=== PATIENT | female | born 1950 | race Caucasian/White ===

== ENCOUNTER 2023-05-22 16:21 | Outpatient (CLI) | payer MEDICARE, BC, SELFPAY | END 2023-05-22 16:22 | disposition home or self-care (01) | LOC: LKVREF 16:23 | PROVIDERS: PCP Physician Assistant Medical; Visit Provider Physician Assistant Medical | DX: Z00.00 Encounter for general adult medical examination without abnormal findings (principal); E03.9 Hypothyroidism, unspecified; I10 Essential (primary) hypertension; R10.9 Unspecified abdominal pain; Z13.6 Encounter for screening for cardiovascular disorders | CPT/HCPCS: 80053; 80061 ==

== ENCOUNTER 2023-06-07 12:32 | Outpatient (CLI) | payer MEDICARE, BC, SELFPAY ==
--- NOTE | 2023-06-07 13:00 | CRLHL7_ITS ---
For Patients: As a result of the Century Cures Act, medical imaging exams and procedure reports are released immediately into your electronic medical record. You may view this report before your referring provider. If you have questions, please contact your health care provider. Indication: Unspecified abdominal pain, PALPABLE Pulsatile MASS Technique: Postcontrast CT abdomen and pelvis. 59 cc Isovue 370 intravenous contrast. Please note that all CT scans at this facility use dose modulation, iterative reconstruction, and/or weight-based dosing when appropriate to reduce radiation dose to as low as reasonably achievable. Comparison: 02/28/2021 Findings: Mild linear subsegmental scarring is present within both lung bases. There is no pleural effusion. No free intraperitoneal air. Sub centimeters cyst within the left hepatic lobe is unchanged. Small layering stones within the gallbladder are present. Coarse calcification within the pancreas. This is unchanged. No suspicious pancreatic lesion. Stable 2.1 cm left adrenal nodule. Right adrenal gland normal. No solid renal mass or hydronephrosis. Spleen is normal. No hiatal hernia. Atherosclerotic changes. No abdominal aortic aneurysm. Bladder normal. Calcified uterine leiomyoma. No adnexal mass. Ovaries appear normal. Ureters are normal. Chronic fracture deformity of the left inferior pubic ramus. Degenerative disc disease and facet degeneration lower lumbar spine. No vertebral body compression fracture. Scattered subcentimeter lymph nodes throughout the abdomen and pelvis without suspicious adenopathy. Appendix normal. No bowel obstruction. Impression: Atherosclerotic disease with ectatic contour of the aorta. However, there is no aneurysm. Mild cholelithiasis, chronic. Stable 2.1 cm left adrenal adenoma. Please note that all CT scans at this facility use dose modulation, iterative reconstruction, and/or weight-based dosing when appropriate to reduce radiation dose to as low as reasonably achievable. Dictated by Berlin Sheppard MD @ 06/10/2023 11:21:01 AM (Electronically Signed)
== END 2023-06-07 12:33 | disposition home or self-care (01) ==
LOC: CT 12:33
PROVIDERS: PCP Physician Assistant Medical; Visit Provider Physician Assistant Medical
DX: R10.9 Unspecified abdominal pain (principal); I70.0 Atherosclerosis of aorta; K80.20 Calculus of gallbladder without cholecystitis without obstruction; D35.02 Benign neoplasm of left adrenal gland
CPT/HCPCS: 74177; Q9967

== ENCOUNTER 2023-06-19 12:44 | Outpatient (CLI) | payer MEDICARE, BC, SELFPAY ==
--- NOTE | 2023-06-19 13:00 | CRLHL7_ITS ---
For Patients: As a result of the Cures Act, medical imaging exams and procedure reports are released immediately into your electronic medical record. You may view this report before your referring provider. If you have questions, please contact your health care provider. INDICATION: Lung cancer screening. History of smoking. High risk patient with greater than 20 pack-year smoking history. TECHNIQUE: Low-dose lung cancer screening non-contrast CT chest. Dose reduction techniques were used. COMPARISON: CT abdomen 06/07/2023 FINDINGS: NODULES: 7.4 millimeter sub solid nodule right upper lobe laterally, 3/48. ill-defined sub solid nodule superior segment left lower lobe measuring 7.8 millimeters, 3/40. LUNGS AND PLEURA: Paraseptal emphysema. Linear subsegmental scarring in both lower lobes and within the right middle lobe. MEDIASTINUM: Atherosclerotic changes. No aneurysm. CORONARY ARTERY CALCIFICATION: Present. LIMITED UPPER ABDOMEN: Left adrenal adenoma again noted. Atherosclerotic changes. No hiatal hernia. MUSCULOSKELETAL: Degenerative changes. No fracture. IMPRESSION: 7.4 millimeter sub solid nodule right upper lobe and 7.8 millimeters sub solid nodule left lower lobe. LUNG-RADS CATEGORY: 3: Probably benign. RADIOLOGIST RECOMMENDATION: Low-dose CT chest in 6 months. Please note that all CT scans at this facility use dose modulation, iterative reconstruction, and/or weight-based dosing when appropriate to reduce radiation dose to as low as reasonably achievable. Dictated by Berlin Sheppard MD @ 06/20/2023 10:44:27 AM (Electronically Signed)
== END 2023-06-19 12:45 | disposition home or self-care (01) ==
LOC: CT 12:44
PROVIDERS: PCP Physician Assistant Medical; Visit Provider Physician Assistant Medical
DX: Z12.2 Encounter for screening for malignant neoplasm of respiratory organs (principal); R91.1 Solitary pulmonary nodule; Z87.891 Personal history of nicotine dependence
CPT/HCPCS: 71271

== ENCOUNTER 2023-08-26 12:59 | Outpatient (CLI) | payer MEDICARE, BC, SELFPAY ==
--- NOTE | 2023-08-26 13:20 | CRLHL7_ITS ---
For Patients: As a result of the Century Cures Act, medical imaging exams and procedure reports are released immediately into your electronic medical record. You may view this report before your referring provider. If you have questions, please contact your health care provider. BILATERAL SCREENING MAMMOGRAM WITH COMPUTER-AIDED DETECTION TECHNIQUE: CC and MLO views were obtained. These mammographic images have been obtained using full-field digital technique. These mammographic images were interpreted with the benefit of computer-aided detection. COMPARISON FILM: 07/28/18 rt diag., 07/14/18. FINDINGS: There are scattered areas of fibroglandular density IMPRESSION: There is no radiographic evidence for malignancy. ASSESSMENT: BI-RADS Category 2: Benign RECOMMENDATION: Routine screening mammogram in 1 year. A lay language report of this examination will be provided to the patient. Berlin Sheppard M.D. Diagnostic Radiologist [email or web address] ANN/Dictated by: Berlin Sheppard MD @ 08/27/2023 8:57:00 AM (Electronically Signed)
== END 2023-08-26 13:00 | disposition home or self-care (01) ==
PROVIDERS: PCP Physician Assistant Medical; Visit Provider Physician Assistant Medical
DX: Z12.31 Encounter for screening mammogram for malignant neoplasm of breast (principal)
CPT/HCPCS: 77063; 77067

== ENCOUNTER 2024-01-06 10:48 | Outpatient (CLI) | payer MEDICARE, BC, SELFPAY ==
--- NOTE | 2024-01-06 11:00 | CT_ITS ---
Patient: CLEMENTE MENDES Facility:?[facility] Patient ID:?[id number] Site Patient ID:?[id number]. Site :?[id number] Study:?CT-Chest WITHOUT-01/06/2024 11:26:46 AM Ordering Physician:ANGIE Final Report: Indication: Pulmonary nodule lung cancer screening follow-up Technique: Low-dose noncontrast CT of the chest with multiplanar reformats. Comparison: Chest CT performed 06/19/2023 Findings: Lungs: Ground-glass nodule in the superior segment of the left lower lobe measuring 7.5 millimeters appears unchanged. Ground-glass nodule in the right upper lobe measuring 6.5 millimeters is slightly decreased in size compared to prior examination. Additional smaller scattered nodules are unchanged with no convincing evidence of a new or enlarging nodule. Scattered areas of atelectasis and/or scarring are again noted. Mediastinum: No acute abnormality appreciated. Three-vessel calcified coronary arterial atherosclerosis. Calcified atherosclerosis of the aorta and great vessels. Lymph nodes: No gross lymphadenopathy. Upper abdomen: No acute abnormality appreciated. Soft tissues: No acute abnormality appreciated. Bones: No acute abnormality appreciated. Impression: No new or enlarging nodules are appreciated. Previously described nodules are unchanged or decreased in size. Recommend continued annual surveillance screening (Lung-RADS 2). Please note that all CT scans at this facility use dose modulation, iterative reconstruction, and/or weight-based dosing when appropriate to reduce radiation dose to as low as reasonably achievable. Dictated by Adryan Sotelo MD @ 01/06/2024 8:51:06 PM Signed by:?Adryan Sotelo MD @01/06/2024 8:51:06 PM (Electronic Signature)
== END 2024-01-06 10:49 | disposition home or self-care (01) ==
LOC: CT 10:49
PROVIDERS: PCP Physician Assistant Medical; Visit Provider Physician Assistant Medical
DX: R91.1 Solitary pulmonary nodule (principal); Z12.2 Encounter for screening for malignant neoplasm of respiratory organs
CPT/HCPCS: 71250

== ENCOUNTER 2024-05-25 10:22 | Outpatient (CLI) | payer MEDICARE, BC, SELFPAY | END 2024-05-25 10:23 | disposition home or self-care (01) | PROVIDERS: PCP Physician Assistant Medical; Visit Provider Physician Assistant Medical | DX: E78.5 Hyperlipidemia, unspecified (principal); I10 Essential (primary) hypertension; E03.9 Hypothyroidism, unspecified | CPT/HCPCS: 80053; 80061; 84439; 84443 ==

== ENCOUNTER 2024-06-11 14:09 | Outpatient (CLI) | payer MEDICARE, BC, SELFPAY ==
--- NOTE | 2024-06-11 14:30 | CRLHL7_ITS ---
For Patients: As a result of the Century Cures Act, medical imaging exams and procedure reports are released immediately into your electronic medical record. You may view this report before your referring provider. If you have questions, please contact your health care provider. DXA BONE MINERAL DENSITY STUDY Reason for exam: Screening. Current height (in): 65. Weight (lb): 124. Menopause age: 43. Ethnicity: White. 1. Have you had a previous hip or vertebral fracture? No. 2. Have you had any fractures during your adult life which did not result from significant trauma (e.g., auto accident)? Yes. 3. Did either of your parents have a hip fracture? No. 4. Do you smoke? No. 5. Have you ever taken Glucocorticoids? No. 6. Do you have rheumatoid arthritis? No. 7. Do you have secondary osteoporosis? No. 8. Do you drink 3 or more alcoholic drinks per day? No. 9. Are you being treated for osteoporosis? No. 10. Have you ever taken any of the following medications: Actonel, Evista, Fosamax, Miacalcin, Reclast, Boniva, Forteo, HRT (i.e., estrogen/hormone therapy), Protelos, Prolia, Vitamin D, Calcium, other ??? please specify. ANSWER: No. 11. Do you have any of the following medical conditions: Anorexia or bulimia, asthma or emphysema, end stage renal disease, hyperparathyroidism, any seizure disorders, cancer, inflammatory bowel diseases, hysterectomy, other ??? please specify. ANSWER: No. 12. What was your maximum height (inches)? 66.5. 13. Do you perform weight bearing exercise regularly? No. 14. Do you regularly consume dairy products? No. 15. Do you drink caffeinated beverages? Yes. 16. At what age did your period start? 14. 17. Are you premenopausal? No. 18. How many full-term pregnancies have you had? 1. 19. Have you ever missed your period for more than 6 months in a row (not including or menopause)? No. TECHNIQUE: Bone mineral density study was performed using the [employer]. FINDINGS: The results of the study expressed as bone mineral density (BMD) are as follows: Lumbar spine L1 to L4: BMD: 0.865 g/cm2. T-score: -1.7. Z-score: 0.8 Neck Left: BMD: 0.502 g/cm2. T-score: -3.1. Z-score: -1.0 Right: BMD: 0.509 g/cm2. T-score: -3.1. Z-score: -1.0 Total Left: BMD: 0.596 g/cm2. T-score: -2.8. Z-score: -1.0 Right: BMD: 0.613 g/cm2. T-score: -2.7. Z-score: -0.9 IMPRESSION: Osteoporosis. *Comparison exams done prior to 03/2020 were performed on different unit, [employer]. COMPARISON: Compared with scan of 07/14/2018, the bone mineral density has increased by 0.7 percent at the spine and decreased by 9.3 percent at the hip. Berlin Sheppard M.D. Diagnostic Radiologist [email or web address] JANAE/emre andrea/Dictated by: Berlin Sheppard MD @ 06/12/2024 1:04:00 PM (Electronically Signed)
== END 2024-06-11 14:10 | disposition home or self-care (01) ==
LOC: RAD 14:10
PROVIDERS: PCP Physician Assistant Medical; Visit Provider Physician Assistant Medical
DX: Z13.820 Encounter for screening for osteoporosis (principal); M81.0 Age-related osteoporosis without current pathological fracture; Z78.0 Asymptomatic menopausal state
CPT/HCPCS: 77080

== ENCOUNTER 2024-07-28 11:00 | Outpatient (RCR) | payer MEDICARE, BC, SELFPAY ==
--- NOTE | 2024-06-16 12:36 | PT.OPE ---
PT [facility] Eval Start: 06/16/24 09:33 Freq: Status: Active Protocol: Document 06/16/24 09:33 ENM (Rec: 06/16/24 11:28 ENM [id number]) E-signed By Emerita Coronel DPT Physical Therapy Outpatient Evaluation Insurance Information Recert Due Date 09/14/24 Insurance Name Medicare B Medical Diagnosis other malaise other abnormalities of gait and mobility Treating Diagnosis muscle weakness, impaired balance, impaired gait, decreased hip ROM Referring MD Lucas Subjective Preferred Name [facility] Subjective Patient presents to PT with complaint of deconditioning and weakness. She had a pelvis fracture on her left side 10+ years ago. She is noticing that this side is getting weaker. Due to that weakness she started to use a cart to walk around with a year ago. Has a 2WW at home as well but thinks this is too bulky. Also notes some discomfort in the left leg from the hip down to the knee. Was given exercises to do for her leg which helped some. Now the pains come and go. She likes to walk and does some leg exercises sitting in the chair. She feels off balance sometimes with getting up quickly. She does get scared with walking out on grass. Lives with her in a senior apartment. Does have a hard time getting up off the floor. Her main goal is to walk better and be steady on her feet. When it started: years ago PMHx: COPD, HTN, respiratory problems, osteoporosis Pain Comments 02/20 Current Work Status Retired Objective Other/Pertinent Objective ROM: Hip ROM flexion limited to 90 degs on L R WFL IR L 50% limited R 25% limited ER L 25% limited R WFL Strength: 5x STS 11.71s 30STS with intermittent hands on thighs 13 reps, slightly weaker on L compared to R hip flexors L 3+/5 R 4+/5 knee extensors L 4/5 R 5/5 ankle DF L 3+/5 R 5/5 hip abductors: L unable to hold against resistance R 4/5 SL hip extensors L unable to hold against resistance R able to hold against mod resistance palpation/joint mobility: no significant tenderness to palpation Gait/balance: Patient ambulates safely with her cart. Without AD she displays decreased stance time of LLE, small step length, slow gait FGA testin. 1 2. 2 3. 2 4. 1 5. 2 6. 1 7. 0 8. 1 9. 1 10 . 1 (10/12) ABC balance confidence: 1. 100 % 2. 75% 3. 100% 4. 80% 5. 80% 6. 40% 7. 80% 8. 50% 9. 75% 10. 50% 11. 50% 12. 50% 13. 50 % 14. 0% 15. 0% 16. 40% total 57.5% confidence SLS 2 s on R side, unable to hold without UE support on L Other: moderate hip flexor limitations on L in sidelying, mild on R Functional Test Performed & Score FGA 10/12 ABC scale 57.5% confidence Assessment Assessment/Impression Patient is a 74 year old female presenting with leg weakness and balance difficulties. Their primary complaint is of needing to use an assistive device in the last year as she no longer feels confident walking outside of the house on her own. She has a history for left pelvis fracture and now feels that this leg has been getting weaker with time. She feels the least confidence walking on grass, getting moving after sitting for longer periods and transferring off the ground. Upon assessment patient displays global weakness of LLE compared to RLE with most significant weakness being in her hip. She scores a 12/30 on FGA testing indicating that she is a falls risk. Her balance confidence was self rated at a 57.5% with ABC scale. Patient ambulates with small cart for support and without an AD she often reaches for the mas or railings. Pat would greatly benefit from skilled PT to address impairments stated above to maintain independence with functional mobility and decrease risk for future falls . Primary Functional Limitations walking, getting off ground, getting moving after sitting Plan of Care Rehabilitation Potential Good Rehabilitation Potential Comments fair-good due to chronic nature of weakness Physical Therapy Goals In 10-12 visits: 1. Patient will be IND with HEP and self management of symptoms 2. Patient will improve FGA score from 12 to 16 demonstrating improvements in balance/stability 3. Patient will improve left global hip strength to at least 4-/5 to progress strength for ambulation 4. Patient will improve ABC by 10% for improved confidence with community mobility Coordination/Communication With Referral Source Treatment Plan/Direct Interventions Gait Training,Joint Mobilization,Manual Therapy, Neuromuscular Re-ed,Self-Care/ Home Management,Therapeutic Activities,Therapeutic Exercises Frequency/Duration 2x a week for 1 month, 1x a week for 4-6 weeks Patient Will Be Discharged From Therapy Completion of LTG(s), Independent w/HEP Evaluation Billing Untimed Code Treatment Minutes 34 Complexity Low Certification Information Initial Certification Date 06/16/24 Ending Certification Date 09/14/24 Provider Signature Required Yes Provider Signature Shows Agreement With POC & Medical Necessity Physician NPI Number Write NPI# Here Physician Comment/Change : Physician Signature & Date Requested Please Sign/Date Here
== END 2024-11-09 15:24 | disposition home or self-care (01) ==
PROVIDERS: PCP Physician Assistant Medical; Visit Provider Physician Assistant Medical
DX: R53.81 Other malaise (principal); R26.89 Other abnormalities of gait and mobility; M62.81 Muscle weakness (generalized); R26.81 Unsteadiness on feet; R26.9 Unspecified abnormalities of gait and mobility; Z74.09 Other reduced mobility; Z51.89 Encounter for other specified aftercare
CPT/HCPCS: 97110; 97112; 97116; 97140; 97161; 97530

== ENCOUNTER 2024-08-13 14:17 | Outpatient (CLI) | payer MEDICARE, BC, SELFPAY | END 2024-08-13 14:18 | disposition home or self-care (01) | LOC: LKVREF 14:19 | PROVIDERS: PCP Physician Assistant Medical; Visit Provider Physician Assistant Medical | DX: M79.652 Pain in left thigh (principal); R71.8 Other abnormality of red blood cells; E03.9 Hypothyroidism, unspecified; R82.90 Unspecified abnormal findings in urine; Z13.21 Encounter for screening for nutritional disorder | CPT/HCPCS: 82607; 82746; 84165; 84443; 86334; 87086 ==

== ENCOUNTER 2024-10-16 13:36 | Emergency (ER) | payer MEDICARE, BC, SELFPAY ==
--- OUTSIDE RECORDS SUMMARY | 2024-10-16 13:39 | XMS_ITS | Clinical Summary ---
Author Organization [employer] [facility] Address [place], [place] [address] Care Team Providers Care Rock Contractor Name Role Phone Unknown, Doctor Primary Care Provider Unavailabl e Allergies No known active allergies Medications imipramine (TOFRANIL) 50 mg tablet Take 4 tablets by mouth at bedtime. 360 tablet 3 4 Active levothyroxine (SYNTHROID) 175 mcg tabletIndications:U nspecified hypothyroidism Take 1 tablet by mouth once daily. 90 tablet 3 4 Active metoprolol succinate (TOPROL XL) 100 mg Sustained-Release tabletIndications:H ypertension Take 1 tablet by mouth once daily. 90 tablet 3 4 Active escitalopram oxalate (LEXAPRO) 10 mg tablet Take 1 tablet by mouth once daily. 30 tablet 3 5 Active Active Problems Problem Noted Date Diagnosed Date Unspecified hypothyroidism 05/17/2010 Other and unspecified hyperlipidemia 05/17/2010 Anxiety state, unspecified 05/17/2010 Encounters Date Type Department Care Team Description 08/14/2024 Lab Requisition [facility] [phone] Lolly Lucas PA-C from Last 3 Months Immunizations Name Administration Dates Next Due Influenza, High-dose Inactivated 08/08/2015,07/14 Influenza, IIV3 (Age >=3 years) 08/07/2013,10/11 Pneumococcal Poly,23-Valent (Pneumovax) 08/07/20 01 Td (Age >=7 Years) 03/30/2004 Family History Medical History Relation Name Comments Cancer Father Diabetes Mother Heart Disease Mother Relation Name Status Comments Father Mother Social History Tobacco Use Types Packs/Day Years Used Date Smoking Tobacco: Former Cigarettes Q uit: 06/21/2010 Smokeless Tobacco: Never Alcohol Use Standard Drinks/Week Comments Yes 0 (1 standard drink = 0.6 oz pur e alcohol) Comments No Sex and Gender Information Value Date Recorded Sex Assigned at Not on file Legal Sex Female 7:55 AM GENERAL REPAIR MECHANIC Gender Identity Not on file Sexual Orientation Not on file Obstetrics History Last Filed Vital Signs Vital Sign Reading Time Taken Comments Blood Pressure 138/72 07/30/2014 9:01 AM CDT Pulse 64 08/07/2013 12:45 PM CDT Temperature 36.5 C (97.7 F) 07/30/2014 9:01 AM CDT Respiratory Rate - - Oxygen Saturation - - Inhaled Oxygen Concentration - - Weight 62.1 kg (137 lb) 07/30/2014 9:01 AM CDT Height 167.6 cm (5' 6) 08/07/2013 12:45 PM CDT Body Mass Index 22.11 08/07/2013 12:45 PM CDT Plan of Treatment Health Maintenance Due Date Last Done Comments Tdap 02/01/1960 Depression screening for age 12+ 1961 BMI (ht and wt on same day) for age 18+ 1967 Hepatitis C screening for ag e 18-79 1967 Zoster (shingles) series for age 50+ (1 of 2) 1999 Pneumococcal series for age 50+ (2 of 2 - PCV) 08/07/2002 08/07/2001 DEXA/DXA scan for age 65+ 2014 Tetanus booster 03/30/2014 03/30/2004, 03/30/2004 Colonoscopy through age 75 04/13/2017 04/13/2007 Lipids for age 45-75 07/30/2019 07/30/2014, 10/11/2010, 10/11/2009 RSV vaccine for adults or (1 - 1-dose 75+ series) 02/01/2024 COVID-19 vaccine series ( - 2023- season) 2024 Influenza for age 65+ 06/14/2024 08/08/2015 , 07/30/2014, 08/07/2013, Additional history exists Procedures Procedure Name Priority Date/Time Associated Diagnosis Comments LAB TRACKING EVENT Routine 08/13/2024 2: 35 PM CDT PERIPHERAL BLD MORPHOLOGY Routine 08/13/2024 2:35 PM CDT RETICULOCYTES Routine 08/13/2024 2:35 PM CDT LIPID PANEL Routine 07/30/2014 9:20 AM CDT Hypertension from Last 3 Months or Most Recently Relevant to Health Maintenance Results * LAB TRACKING EVENT (08/13/2024 2:35 PM CDT) Other (Other) Client Collect / Unknown 08/13/2024 2:35 PM CDT 08/14/2024 1:26 PM CDT Lolly Lucas PA-C LAB BILL ONLY Final Result [employer] [facility] [address] [place] [address], * PERIPHERAL BLD MORPHOLOGY (08/13/2024 2:35 PM CDT) Case Report Special Hematology Report Case: [id number] Authorizing Provider: Lolly Lucas PA-C Collected: 08/13/2024 1435 Ordering Location: [facility] Received: 08/14/2024 1548 Pathologist: Tim Perez MD Specimen: Peripheral Blood 08/18/2024 2:16 PM GENERAL REPAIR MECHANIC [facility] Final Diagnosis PERIPHERAL BLOOD: 1. High count monoclonal B-cell lymphocytosis, CLL-type (WHO 2016) a. Absolute monotypic B-cells = 1700/cumm 2. Mild macrocytic anemia 3. See comment 08/18/2024 2:16 PM GENERAL REPAIR MECHANIC [facility] Comment CLL-type monoclonal B-cell lymphocytosis (MBL) is defined by the presence of a monoclonal B-cell population in the peripheral blood (with CLL phenotype) at a concentration of <5,000/cumm in the absence of clinical, laboratory or radiographic features of chronic lymphocytic leukemia/small lymphocytic lymphoma (cytopenias, splenomegaly, lymphadenopathy, extranodal involvement). In this case, the absolute monoclonal B-cell count is > 500/cumm and meets criteria for high-count CLL-type MBL (per WHO 2016 criteria). High count MBL has biologic features identical to those of low stage (Frank stage 0) CLL, and progresses to amilcar CLL requiring therapy at an annual rate of 1-2%. The higher the MBL, the increased incidence of progression. Ultimately, the distinction between MBL and CLL requires clinical correlation, possibly including lymph node biopsy, as clinically appropriate. Potential causes of macrocytic anemia include vitamin B12/folate deficiency, liver disease, hypothyroidism, alcohol use, sideroblastic anemia and certain medications. Increased serum proteins (monoclonal and polyclonal) can also elevate the MCV (consider SPEP as clinically indicated). 08/18/2024 2:16 PM [facility] Clinical Information The patient is a 74-year-old female. Per CBC scan: Macrocytosis. 08/18/2024 2:16 PM GENERAL REPAIR MECHANIC [facility] CBC and Differential HEMATOLOGY PARAMETERS Tested at: [facility] RESULTS EXPECTED VALUES WBC: 9.5 4.5-24c1350/cumm RBC: 3.33 4.00-5.20 mil/cumm DECREASED HGB: 11.6 12-16 gm/dl DECREASED HCT: 34.9 33-51% MCV: 104.8 80-100 fl MACROCYTIC MCH: 34.8 26-34 pg ELEVATED MCHC: 33.2 32-36 gm/dl NORMOCHROMIC RDW: 12.7 11.5-15.5% PLT: 242 140-867e0754/uL Differential Absolute (%) Expected (%) (x10*9/L) (x10*9/L) Neutrophils: 5.69 (59.7) 1.7-7.0 (42-72%) Lymphocytes: 3.4 (35.7) 0.9-2.9 (20-44%) ELEVATED Monocytes: 0.35 (3.7) <0.9 (0-11%) Eosinophils: 0.04 (.4) <0.5 (0-2%) Basophils: 0.04 (.4) <0.3 (<3.0%) Imm Grans: 0.01 (.1) <0.3 (0-3%) (Metas, Myelos,Pros) 08/18/2024 2:16 PM GENERAL REPAIR MECHANIC [facility]- [facility] LABORATORY Microscopic Description The final diagnosis is based on microscopic examination of an appropriately stained blood smear. 08/18/2024 2:16 PM GENERAL REPAIR MECHANIC [facility]-C [facility] Flow Cytometry Summary B Cell Leukemia/Lymphoma & T Cell Screen panels: Interpretation: Flow cytometry discloses a monotypic kappa B-cell cohort positive for CD19, CD20, CD5, CD23, CD43 and CD200, consistent with a chronic lymphocytic leukemia (CLL)-like immunophenotype. No monotypic T lymphocytes are detected. Clinical indication for flow cytometry: Lymphocytosis. B Cell Leukemia/Lymphoma panel A monotypic B cell cohort is detected that comprises approximately 45.7% of total viable nucleated events as defined by light scatter criteria. Summary of B cell phenotype Brightly positive markers: CD45/CD5/CD19/CD2 00/CD23 Moderately positive markers: KAPPA/CD20/CD22/C D43 Dimly positive markers: Trace positive markers: CD79b Negative markers: CD2/CD3/CD103/VELA BDA/CD10/CD38 Approximate absolute monotypic B lymphocytes = 1,700/cumm Quality Assessment Viability (7-AAD): 39% Monotypic B cell events: 6112 Nucleated cells analyzed: 04693 Limit of detection (LOD): 0.1% T Cell Screen panel Percent of Lymphs B cells (CD19+): 46.7% T cells (CD3+): 51.7% NK cells (CD3-/CD56+): 1.3% CD3+/CD4+: 45.6% CD3+/CD8+: 5.7% CD4:CD8 ratio: 8.0 T lymphocytes in this analysis demonstrate normal qualitative expression of the following antigens: CD2, CD3, CD4, CD5, CD7, CD8, CD19, CD45, CD56, TCR gamma delta, and TRBC1. Quality Assessment Polytypic T cell events: 4768 Nucleated cells analyzed: 68206 Limit of detection (LOD): 0.5% These results and cytograms have been verified by Dr. Perez. This test was developed and its performance characteristics verified by [facility]. It has not been cleared or approved by the [place] Food and Drug Administration. This test is used for clinical purposes and should not be regarded as investigational or for research. Analytic Flow Tech: Virgil SalazarCeline Call, 08/17/2024 1:35 PM Verifying Flow Tech: Malika Jass Munoz, 08/17/2024 1:50 PM 08/18/2024 2:16 PM GENERAL REPAIR MECHANIC [facility] Additional Information Interpreted at [facility] - [address], [place] [address] 08/18/2024 2:16 PM GENERAL REPAIR MECHANIC [facility] Blood (Peripheral Blood) 08/13/2024 2:35 PM CDT 08/14/2024 3:48 PM CDT Lolly Lucas PA-C HEMATOLOGY Final Result Performing Organization Address City/[facility]/ZIP Co de Phone Number [facility] [address] [place] [address], [place] * (ABNORMAL) RETICULOCYTES (08/13/2024 2:35 PM CDT) RETIC% 1.6(H) 0.5 - 1.5 % 08/14/2024 1:54 PM CDT [facility] RETIC (ABSOLUTE) 0.05 0.03 - 0.08 mil/cu mm 08/14/2024 1:54 PM CDT [facility] Blood BLOOD SPECIMEN / Unknown Client Collect / Unknown 08/13/2024 2:35 PM CDT 08/14/2024 1:26 PM CDT Lolly Lucas PA-C HEMATOLOGY Final Result [facility] [address] [place] [address], [place] * (ABNORMAL) LIPID PANEL (07/30/2014 9:20 AM CDT) CHOLESTEROL,TOTAL 224(H) 100 - 199 mg/dL 07/30/2014 1:46 PM CDT [facility] LABORAT[facility] TRIGLYCERIDES 121 <150 mg/dL 07/30/2014 1:46 PM CDT [facility] TRAL LABORATORY HDL CHOLESTEROL 73 >40 mg/dL 4 1:46 PM CDT [facility] TR[facility] LAB[facility] NON-HDL CHOLESTEROL 151(H) <145 mg/dl 07/30/2014 1:46 PM CDT [facility] CHOL/HDL RATIO 3.07 <4.50 07/30/2014 1:46 PM CDT [facility] LDL CHOLESTEROL 127 <=130 mg/dL 07/30/2014 1:46 PM CDT [facility] PATIENT STATUS NOT GIVEN 07/30/2014 1:46 PM CDT [facility] Blood specimen (specimen) BLOOD SPECIMEN / Unknown Venipuncture / Unknown 07/30/2014 9:20 AM CDT 07/30/2014 9:20 AM CDT Justin Del Real MD CHEMISTRY Final Resu lt [facility] [address] [place] [address], [place] from Last 3 Months or Most Recently Relevant to Health Maintenance Insurance [facility] MEDIC[facility] [place] ONLY Care Teams Rock Contractor Relationship Specialty Start Date End Date Unknown, Doctor . PCP - General 08/28/18
[2024-10-16 14:10] VITALS: BP 172/79; PULSE 92; RESP 24; TEMP 36.6; O2SAT 93; BMI 19.9
== END 2024-10-16 17:00 | disposition home or self-care (01) ==
PROVIDERS: Emergency Provider Emergency Medicine; PCP Physician Assistant Medical
DX: Z53.21 Procedure and treatment not carried out due to patient leaving prior to being seen by health care provider (principal)
CPT/HCPCS: 81001

== ENCOUNTER 2024-11-04 15:09 | Emergency (ER) | payer MEDICARE, BC, SELFPAY ==
[2024-11-04] VITALS (8 sets, daily range): BP systolic 133–170; BP diastolic 31–107; PULSE 73–95; RESP 18; O2SAT 93–96; BMI 21.5
--- OUTSIDE RECORDS SUMMARY | 2024-11-04 15:11 | XMS_ITS | Clinical Summary ---
Author Organization [employer] [facility] Address [place], [place] [address] Care Team Providers Care Casing Mixer Name Role Phone Unknown, Doctor Primary Care [...] Department Care Team Description 08/14/2024 Lab Requisition [facility] [phone] Lolly Lucas PA-C from Last 3 Months [...] on file Legal Sex Female 7:55 AM SPECIAL EVENTS DIRECTOR Gender Identity Not on file Sexual Orientation [...] Lucas PA-C LAB BILL ONLY Final Result [employer] [facility] [address] [place] [address], * PERIPHERAL BLD MORPHOLOGY (08/13/2024 2:35 PM CDT) Case Report Special Hematology Report Case: [id number] Authorizing Provider: Lolly Lucas PA-C Collected: 08/13/2024 1435 Ordering Location: [facility] Received: 08/14/2024 1548 Pathologist: Tim Perez MD Specimen: Peripheral Blood 08/18/2024 2:16 PM SPECIAL EVENTS DIRECTOR [facility] ENTRAL LABORATORY Final Diagnosis PERIPHERAL BLOOD: 1. High count monoclonal B-cell lymphocytosis, CLL-type (WHO 2016) a. Absolute monotypic B-cells = 1700/cumm 2. Mild macrocytic anemia 3. See comment 08/18/2024 2:16 PM SPECIAL EVENTS DIRECTOR [facility]AL LABORATORY Comment CLL-type monoclonal B-cell [...] SPEP as clinically indicated). 08/18/2024 2:16 PM [facility] Clinical Information The patient is a 74-year-old female. Per CBC scan: Macrocytosis. 08/18/2024 2:16 PM SPECIAL EVENTS DIRECTOR [facility] CBC and Differential HEMATOLOGY PARAMETERS Tested at: [facility] RESULTS EXPECTED VALUES WBC: 9.5 4.5-05f0622/cumm RBC: 3.33 4.00-5.20 mil/cumm DECREASED HGB: 11.6 12-16 gm/dl DECREASED HCT: 34.9 33-51% MCV: 104.8 80-100 fl MACROCYTIC MCH: 34.8 26-34 pg ELEVATED MCHC: 33.2 32-36 gm/dl NORMOCHROMIC RDW: 12.7 11.5-15.5% PLT: 242 140-771s2664/uL Differential Absolute (%) Expected (%) (x10*9/L) (x10*9/L) Neutrophils: 5.69 (59.7) 1.7-7.0 (42-72%) Lymphocytes: 3.4 (35.7) 0.9-2.9 (20-44%) ELEVATED Monocytes: 0.35 (3.7) <0.9 (0-11%) Eosinophils: 0.04 (.4) <0.5 (0-2%) Basophils: 0.04 (.4) <0.3 (<3.0%) Imm Grans: 0.01 (.1) <0.3 (0-3%) (Metas, Myelos,Pros) 08/18/2024 2:16 PM SPECIAL EVENTS DIRECTOR [facility]ATORY Microscopic Description The final diagnosis is based on microscopic examination of an appropriately stained blood smear. 08/18/2024 2:16 PM SPECIAL EVENTS DIRECTOR [facility] Flow Cytometry Summary B Cell [...] B cell events: 6112 Nucleated cells analyzed: 28421 Limit of detection (LOD): 0.1% T Cell [...] T cell events: 4768 Nucleated cells analyzed: 33233 Limit of detection (LOD): 0.5% These results and cytograms have been verified by Dr. Perez. This test was developed and its performance characteristics verified by [facility]. It has not been cleared or approved by the [place] Food and Drug Administration. This test is used for clinical purposes and should not be regarded as investigational or for research. Analytic Flow Tech: Virgil SalazarCeline Call, 08/17/2024 1:35 PM Verifying Flow Tech: Malika Jass Munoz, 08/17/2024 1:50 PM 08/18/2024 2:16 PM SPECIAL EVENTS DIRECTOR [facility] Additional Information Interpreted at [facility] - [address], [place] [address] 08/18/2024 2:16 PM SPECIAL EVENTS DIRECTOR [facility] Blood (Peripheral Blood) 08/13/2024 2:35 PM CDT 08/14/2024 3:48 PM CDT Lolly Lucas PA-C HEMATOLOGY Final Result Performing Organization Address City/[facility]/ZIP Co de Phone Number [facility] [address] [place] [address], [place] * (ABNORMAL) RETICULOCYTES (08/13/2024 2:35 PM CDT) RETIC% 1.6(H) 0.5 - 1.5 % 08/14/2024 1:54 PM CDT [facility] RETIC (ABSOLUTE) 0.05 0.03 - 0.08 mil/cu mm 08/14/2024 1:54 PM CDT [facility] Blood BLOOD SPECIMEN / Unknown Client Collect / Unknown 08/13/2024 2:35 PM CDT 08/14/2024 1:26 PM CDT Lolly Lucas PA-C HEMATOLOGY Final Result [facility] [address] [place] [address], [place] * (ABNORMAL) LIPID PANEL (07/30/2014 9:20 AM CDT) CHOLESTEROL,TOTAL 224(H) 100 - 199 mg/dL 07/30/2014 1:46 PM CDT [facility] TRAL LABORATORY TRIGLYCERIDES 121 <150 mg/dL 07/30/2014 1:[address] [facility] HDL CHOLESTEROL 73 >40 mg/dL 4 1:[address] [facility] NON-HDL CHOLESTEROL 151(H) <145 mg/dl 07/30/2014 1:[address] [facility] LAB[facility]ORY CHOL/HDL RATIO 3.07 <4.50 07/30/2014 1:46 PM CDT [facility] LDL CHOLESTEROL 127 <=130 mg/dL 07/30/2014 1:[address] [facility] TRAL LABORATORY PATIENT STATUS NOT GIVEN 07/30/2014 1:46 PM CDT [facility] Blood specimen (specimen) BLOOD SPECIMEN / Unknown Venipuncture / Unknown 07/30/2014 9:20 AM CDT 07/30/2014 9:20 AM CDT Justin Del Real MD CHEMISTRY Final Resu lt [facility] [address] [place] [address], [place] from Last 3 Months or Most Recently Relevant to Health Maintenance Insurance [facility] MEDICARE [place] ONLY Care Teams Casing Mixer Relationship Specialty Start Date End Date Unknown, Doctor . PCP - General 08/28/18
--- NOTE | 2024-11-04 15:26 | ED_ITS ---
HPI - Extremity Injury (Upper) General Chief Complaint: Extremity Pain/Injury, Upper <Rosario Eldridge MD - Last Filed: 11/04/24 22:52> Stated Complaint: Fall 2 weeks-dislocated R shoulder <Rosario Eldridge MD - Last Filed: 11/04/24 22:52> Time Seen by Provider: 11/04/24 15:26 <Rosario Eldridge MD - Last Filed: 11/04/24 22:52> History of Present Illness HPI narrative: This 74-year-old female was sent over from urgent care because of a should er injury. X-ray images there show a anterior dislocation with a fracture. The patient was sent here and upon arrival we learned that this was an injury event that occurred a couple weeks ago. She states that she has dislocated this same shoulder a couple times in the past 30 years and the last time was about 10 years ago. She does not report any other injury. She last ate about 4 hours ago. <Luis Manuel Maharaj MD - Last Filed: 11/04/24 16:27> Related Data Home Medications: Home Medications ?Medication ?Instructions ?Recorded ?Confirmed acetaminophen 500 mg tablet 1,000 mg PO QID PRN 09/02/24 11/04/24 (Tylenol Extra Strength) Previous Rx's ?Medication ?Instructions ?Recorded albuterol sulfate 90 mcg/actuation 2 puff inhalation Q4-6H PRN 11/11/23 aerosol inhaler (Ventolin HFA) shortness of breath or wheezing #18 grams amlodipine 5 mg tablet 5 mg PO QDAY #90 tabs 05/25/24 atorvastatin 10 mg tablet 10 mg PO QDAY #90 tabs 05/25/24 losartan 100 mg tablet 100 mg PO QDAY #90 tabs 05/25/24 metoprolol succinate 100 mg 100 mg PO QDAY #90 tabs 05/25/24 tablet,extended release 24 hr levothyroxine 125 mcg tablet 125 mcg PO QDAY #90 tabs 08/31/24 hydrocodone 5 mg-acetaminophen 325 1 tab PO Q4-6H PRN pain #20 tabs 11/04/24 mg tablet <Rosario Eldridge MD - Last Filed: 11/04/24 22:52> Allergies/Adverse Reactions: Allergies Allergy/AdvReac Type Severity Reaction Status Date / Time No Known Allergies Allergy Unknown Verified 11/04/24 15:25 <Rosario Eldridge MD - Last Filed: 11/04/24 22:52> Review of Systems Status of ROS: Reports: 10 or more systems reviewed and unremarkable except as noted in History and below <Luis Manuel Maharaj MD - Last Filed: 11/04/24 16:27> Narrative: Constitutional: No fevers, no weight gain or loss. Eyes: No discharge. No vision changes. HENT: No congestion, no sore throat, no ear pain. Cardiovascular: No chest pain, no palpitations. Respiratory: No shortness of breath, no wheezes, no cough. Gastrointestinal: No abdominal pain, no vomiting, no diarrhea. Genitourinary: No dysuria, no hematuria. Musculoskeletal: Right shoulder injury as described above. Skin: No rashes, no pruritis. Neurological: No dizziness, weakness, sensory change, speech change. Endo/Heme/Allergies: No bruising or bleeding. No polydipsia. Pysch: no suicidality, no anxiety, no insomnia. All other systems reviewed and are negative. 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 - Lymphocytosis (symptomatic) (ICD-10) Hypertension ?I10 - Essential (primary) hypertension (ICD-10) Hyperlipidemia (~05/2023) ?E78.5 - Hyperlipidemia, unspecified (ICD-10) COPD (chronic obstructive pulmonary disease) ?J44.9 - Chronic obstructive pulmonary disease, unspecified (ICD-10) Hypothyroidism ?E03.9 - Hypothyroidism, unspecified (ICD-10) Osteoporosis ?M81.0 - Age-related osteoporosis without current pathological fracture (ICD- 10) Former smoker ?Z87.891 - Personal history of nicotine dependence (ICD-10) Seasonal allergies ?J30.2 - Other seasonal allergic rhinitis (ICD-10) Imbalance ?R26.89 - Other abnormalities of gait and mobility (ICD-10) Physical deconditioning ?R53.81 - Other malaise (ICD-10) Pulmonary nodule (~06/2023) ?R91.1 - Solitary pulmonary nodule (ICD-10) Adrenal adenoma ?D35.00 - Benign neoplasm of unspecified adrenal gland (ICD-10) Cholelithiasis (~05/2023) ?K80.20 - Calculus of gallbladder without cholecystitis without obstruction (ICD-10) Elevated MCV ?R71.8 - Other abnormality of red blood cells (ICD-10) Anxiety ?F41.9 - Anxiety disorder, unspecified (ICD-10) History of pelvic fracture ?Z87.81 - Personal history of (healed) traumatic fracture (ICD-10) Recurrent dislocation of shoulder ?M24.419 - Recurrent dislocation, unspecified shoulder (ICD-10) <Rosario Eldridge MD - Last Filed: 11/04/24 22:52> Surgical History: Surgical History H/O tooth extraction ?K08.409 - Partial loss of teeth, unspecified cause, unspecified class (ICD- 10) Status post tonsillectomy and adenoidectomy ?Z90.89 - Acquired absence of other organs (ICD-10) History of tubal ligation ?Z98.51 - Tubal ligation status (ICD-10) <Rosario Eldridge MD - Last Filed: 11/04/24 22:52> Family History: Family History Other Diabetes Heart disease Lung cancer <Rosario Eldridge MD - Last Filed: 11/04/24 22:52> Social History: Social History Narrative: former smoker Smoking Status: Former smoker <Rosario Eldridge MD - Last Filed: 11/04/24 22:52> Exam Narrative: Exam Narrative: Constitutional: Well-developed, well-nourished, no acute distress. HEENT: Normocephalic, atraumatic. Neck: Normal range of motion. Nontender. Supple. Heart: Regular. No murmurs. Normal rate. Intact distal pulses. Lungs: Clear to auscultation. No chest discomfort. No wheezes, rhonchi, or rales. Abdomen: Normal bowel sounds. Nontender. No rebound tenderness. Genitalia: Deferred. Back: No midline tenderness. Normal range of motion. Extremities: Right shoulder injury with decreased range of motion. There is anterior fullness typical of dislocation. Skin: Intact. No rash. Warm. No erythema or pallor. Neurologic: No altered sensation. No weakness. Alert and oriented. Psychiatric: No suicidality. No anxiety or depression. No insomnia. Nursing notes and vitals signs are reviewed. <Luis Manuel Maharaj MD - Last Filed: 11/04/24 16:27> Const: Vital Signs, click to edit/add: Vital Signs - 24 hr 11/04/24 15:21 11/04/24 16:39 11/04/24 16:40 Pulse Rate 73 85 Pulse Rate [Left P ulse Oximeter] 95 Respiratory Rate 18 Blood Pressure 133/80 Blood Pressure [Le ft Upper Arm] 165/77 H Pulse Oximetry 95 94 Oxygen Delivery Me thod Room Air 11/04/24 16:42 11/04/24 16:45 11/04/24 16:47 Pulse Rate 84 85 91 Pulse Rate [Left P ulse Oximeter] Respiratory Rate Blood Pressure 149/77 H 170/31 H Blood Pressure [Le ft Upper Arm] Pulse Oximetry 95 96 93 Oxygen Delivery Me thod 11/04/24 16:54 11/04/24 16:57 Pulse Rate 84 Pulse Rate [Left P ulse Oximeter] Respiratory Rate Blood Pressure 147/76 H 153/107 H Blood Pressure [Le ft Upper Arm] Pulse Oximetry 94 Oxygen Delivery Me thod <Rosario Eldridge MD - Last Filed: 11/04/24 22:52> Vital Signs, click to edit/add: Vital Signs - 24 hr 11/04/24 15:21 11/04/24 16:39 11/04/24 16:40 Pulse Rate 73 85 Pulse Rate [Left P ulse Oximeter] 95 Respiratory Rate 18 Blood Pressure 133/80 Blood Pressure [Le ft Upper Arm] 165/77 H Pulse Oximetry 95 94 Oxygen Delivery Me thod Room Air 11/04/24 16:42 11/04/24 16:45 11/04/24 16:47 Pulse Rate 84 85 91 Pulse Rate [Left P ulse Oximeter] Respiratory Rate Blood Pressure 149/77 H 170/31 H Blood Pressure [Le ft Upper Arm] Pulse Oximetry 95 96 93 Oxygen Delivery Me thod 11/04/24 16:54 11/04/24 16:57 Pulse Rate 84 Pulse Rate [Left P ulse Oximeter] Respiratory Rate Blood Pressure 147/76 H 153/107 H Blood Pressure [Le ft Upper Arm] Pulse Oximetry 94 Oxygen Delivery Me thod <Luis Manuel Maharaj MD - Last Filed: 11/04/24 16:27> Course Consultations Consultation #1: Contacted Orthopedics. I have concerns given the length of this injury, probable humeral head fracture. Has not been over-read by radiology yet. Orthopedics will take a look at images, help guide us. <Rosario Eldridge MD - Last Filed: 11/04/24 22:52> Time: 15:27 <Rosario Eldridge MD - Last Filed: 11/04/24 22:52> Vital Signs Vital signs: Initial Vital Signs Pulse Rate 95 11/04/24 15:21 Pulse Rhythm Regular 11/04/24 15:21 Pulse Strength 3+ Normal 11/04/24 15:21 Respiratory Rate 18 11/04/24 15:21 Blood Pressure 165/77 H 11/04/24 15:21 Blood Pressure Mean 106 H 11/04/24 15:21 Blood Pressure Position Sitting 11/04/24 15:21 Pulse Oximetry 95 11/04/24 15:21 Oxygen Delivery Method Room Air 11/04/24 15:21 Vital Signs Pulse Rate 95 11/04/24 15:21 Respiratory Rate 18 11/04/24 15:21 Blood Pressure 165/77 H 11/04/24 15:21 Pulse Oximetry 95 11/04/24 15:21 Oxygen Delivery Method Room Air 11/04/24 15:21 Pulse Rate 84 11/04/24 16:54 Respiratory Rate 18 11/04/24 15:21 Blood Pressure 153/107 H 11/04/24 16:57 Pulse Oximetry 94 11/04/24 16:54 Oxygen Delivery Method Room Air 11/04/24 15:21 <Rosario Eldridge MD - Last Filed: 11/04/24 22:52> Initial Vital Signs Pulse Rate 95 11/04/24 15:21 Pulse Rhythm Regular 11/04/24 15:21 Pulse Strength 3+ Normal 11/04/24 15:21 Respiratory Rate 18 11/04/24 15:21 Blood Pressure 165/77 H 11/04/24 15:21 Blood Pressure Mean 106 H 11/04/24 15:21 Blood Pressure Position Sitting 11/04/24 15:21 Pulse Oximetry 95 11/04/24 15:21 Oxygen Delivery Method Room Air 11/04/24 15:21 Vital Signs Pulse Rate 95 11/04/24 15:21 Respiratory Rate 18 11/04/24 15:21 Blood Pressure 165/77 H 11/04/24 15:21 Pulse Oximetry 95 11/04/24 15:21 Oxygen Delivery Method Room Air 11/04/24 15:21 Pulse Rate 84 11/04/24 16:54 Respiratory Rate 18 11/04/24 15:21 Blood Pressure 153/107 H 11/04/24 16:57 Pulse Oximetry 94 11/04/24 16:54 Oxygen Delivery Method Room Air 11/04/24 15:21 <Luis Manuel Maharaj MD - Last Filed: 11/04/24 16:27> Medications Administered Medications: Discontinued Medications Generic Name Dose Route Start Last Admin Trade Name Freq PRN Reason Stop Dose Admin Sodium Chloride 500 mls @ 500 mls/hr 11/04/24 16:07 11/04/24 16:35 0.9 % Sodium Chloride 500 Ml IV 11/04/24 17:06 Infused .Q1H ONE Infusion Propofol 200 mg 11/04/24 15:56 11/04/24 16:31 Propofol 10 Mg/Ml Inj IVP 11/04/24 15:57 200 mg ONCE ONE Administration <Rosario Eldridge MD - Last Filed: 11/04/24 22:52> Discontinued Medications Generic Name Dose Route Start Last Admin Trade Name Freq PRN Reason Stop Dose Admin Sodium Chloride 500 mls @ 500 mls/hr 11/04/24 16:07 11/04/24 16:35 0.9 % Sodium Chloride 500 Ml IV 11/04/24 17:06 Infused .Q1H ONE Infusion Propofol 200 mg 11/04/24 15:56 11/04/24 16:31 Propofol 10 Mg/Ml Inj IVP 11/04/24 15:57 200 mg ONCE ONE Administration <Luis Manuel Maharaj MD - Last Filed: 11/04/24 16:27> MDM - Extremity Injury (Upper) MDM Narrative Medical decision making narrative: This patient has a anterior dislocation of her right shoulder seen on x- ray imaging. She also has a fracture that is minimally displaced. Dr. Todd from the Orthopedic Department was consulted regarding this and he has come to the emergency department to perform a reduction with propofol sedation. After acquiring informed consent the patient did receive propofol intravenously. She received a total of 200 mg of propofol to acquire sufficient relaxation and sedation. Dr. Todd was unable to successfully reduce this shoulder and the patient will need to arrange an appointment for a surgical reduction. This would not need to happen today. The patient was placed in a sling and received prescription for [place]. She will need to contact the clinic for arrangement of surgical reduction of the shoulder. <Luis Manuel Maharaj MD - Last Filed: 11/04/24 16:27> Discharge Plan Discharge Clinical Impression: Anterior shoulder dislocation, Fracture, humerus <Rosario Eldridge MD - Last Filed: 11/04/24 22:52> Patient Disposition: Home w/ Parent or Adult <Rosario Eldridge MD - Last Filed: 11/04/24 22:52> Condition: Unchanged <Rosario Eldridge MD - Last Filed: 11/04/24 22:52> Additional Instructions: Wear sling and use pain medication as needed and directed. Follow up with orthopedic clinic for surgical reduction of the fractured dislocated shoulder. Call [phone] for appointment. Return if worsening. <Rosario Eldridge MD - Last Filed: 11/04/24 22:52> Prescriptions: New hydrocodone-acetaminophen 5-325 mg tablet 1 tab PO Q4-6H PRN (Reason: pain) Qty: 20 0RF No Action acetaminophen [Tylenol Extra Strength] 500 mg tablet 1,000 mg PO QID PRN amlodipine 5 mg tablet 5 mg PO QDAY Qty: 90 3RF Rx Instructions: For blood pressure atorvastatin 10 mg tablet 10 mg PO QDAY Qty: 90 3RF Rx Instructions: 1 tablet, once daily for high cholesterol losartan 100 mg tablet 100 mg PO QDAY Qty: 90 3RF Rx Instructions: For blood pressure metoprolol succinate 100 mg tablet extended release 24 hr 100 mg PO QDAY Qty: 90 3RF Rx Instructions: For blood pressure albuterol sulfate [Ventolin HFA] 90 mcg/actuation HFA aerosol inhaler 2 puff inhalation Q4-6H PRN (Reason: shortness of breath or wheezing) Qty: 18 0RF Rx Instructions: 2 puffs every 4-6 hours as needed for rescue inhaler levothyroxine 125 mcg tablet 125 mcg PO QDAY Qty: 90 2RF Rx Instructions: one daily for thyroid. <Rosario Eldridge MD - Last Filed: 11/04/24 22:52> Follow Up/Referrals: Lolly Lucas PA-C [Primary Care Provider] - <Rosario Eldridge MD - Last Filed: 11/04/24 22:52> Stand Alone Forms: [employer] Info Instructions <Rosario Eldridge MD - Last Filed: 11/04/24 22:52>
[2024-11-04] MEDS: 0.9 % SODIUM CHLORIDE 500 ML 500 ML IV (16:10)
--- NOTE | 2024-11-04 16:13 | CRLHL7_ITS ---
For Patients: As a result of the Cures Act, medical imaging exams and procedure reports are released immediately into your electronic medical record. You may view this report before your referring provider. If you have questions, please contact your health care provider. INDICATION: Right shoulder dislocation. Status post reduction. TECHNIQUE: Right shoulder radiograph, 1 view. COMPARISON: None. FINDINGS/IMPRESSION: Persistent anterior dislocation of the right shoulder status post interval attempted reduction. Grossly unchanged acute comminuted fracture of the greater tuberosity of the right proximal humerus. Dictated by Ge Dye MD @ 11/04/2024 4:40:12 PM (Electronically Signed)
[2024-11-04] MEDS: PROPOFOL 10 MG/ML INJ 200 MG IVP (16:31)
--- NOTE | 2024-11-04 16:33 | CRLHL7_ITS ---
For Patients: As a result of the Cures Act, medical imaging exams and procedure reports are released immediately into your electronic medical record. You may view this report before your referring provider. If you have questions, please contact your health care provider. INDICATION: Fracture or dislocation COMPARISON: Same-day right shoulder radiographs at 16:20 TECHNIQUE: CT of the right shoulder without intravenous contrast. FINDINGS: There is diffuse osseous demineralization. Anteroinferior dislocation of the humerus with respect to the glenoid. Acute large Hill-Sachs deformity with several adjacent small displaced fracture fragments. Normal alignment of the acromioclavicular joint. Mild degenerative change of the acromioclavicular joint. Small subacromial enthesophyte. Grossly normal rotator cuff muscular bulk. Partially imaged emphysematous changes in the lungs. There are atherosclerotic vascular calcifications. IMPRESSION: 1. Anteroinferior dislocation of the humerus with respect to the glenoid. 2. Large acute Hill-Sachs deformity with several adjacent small displaced fracture fragments. 3. Small subacromial enthesophyte. Please note that all CT scans at this facility use dose modulation, iterative reconstruction, and/or weight-based dosing when appropriate to reduce radiation dose to as low as reasonably achievable. Dictated by Rob Ramsay MD @ 11/04/2024 5:16:38 PM (Electronically Signed)
--- NOTE | 2024-11-05 12:59 | PM.ORCN ---
History of Present Illness HPI Date Seen: 11/04/24 Consult date: 11/04/24 Chief complaint: Fall 2 weeks-dislocated R shoulder Narrative: Arabella is a pleasant 74-year-old female was came from urgent care because of a right shoulder injury. X-ray images there show an anterior shoulder dislocation with a proximal humerus fracture. Further inquiry with the patient reveals that she has a history of approximately 3 dislocations to this right shoulder over the last 30 years. The most recent was 10 years ago. Current history reveals 2 weeks ago she sustained a slip and fall in her garage landing onto her right shoulder. She recalls some pain at that time, but thought it was not too bad. Thus, she continued to take Tylenol and ibuprofen as needed. She noted her range of motion of the shoulder was quite poor, but thought this would improve with time. She eventually presented to there Urgent Care where the x-rays revealed her right shoulder pathology. This prompted a referral to the emergency department today. Given her fracture dislocation, Orthopedics was consulted to consider possible closed versus open reduction here and now. Of note, she does have a history of smoking approximately 1-2 cigarettes per day for many years. She stops smoking 08/2024 per her report. Otherwise, does have a history of COPD. No reported cardiovascular, hepatic, or other vascular disorders. 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 - Lymphocytosis (symptomatic) (ICD-10) Hypertension ?I10 - Essential (primary) hypertension (ICD-10) Hyperlipidemia (~05/2023) ?E78.5 - Hyperlipidemia, unspecified (ICD-10) COPD (chronic obstructive pulmonary disease) ?J44.9 - Chronic obstructive pulmonary disease, unspecified (ICD-10) Hypothyroidism ?E03.9 - Hypothyroidism, unspecified (ICD-10) Osteoporosis ?M81.0 - Age-related osteoporosis without current pathological fracture (ICD-10) Former smoker ?Z87.891 - Personal history of nicotine dependence (ICD-10) Seasonal allergies ?J30.2 - Other seasonal allergic rhinitis (ICD-10) Imbalance ?R26.89 - Other abnormalities of gait and mobility (ICD-10) Physical deconditioning ?R53.81 - Other malaise (ICD-10) Pulmonary nodule (~06/2023) ?R91.1 - Solitary pulmonary nodule (ICD-10) Adrenal adenoma ?D35.00 - Benign neoplasm of unspecified adrenal gland (ICD-10) Cholelithiasis (~05/2023) ?K80.20 - Calculus of gallbladder without cholecystitis without obstruction (ICD-10) Elevated MCV ?R71.8 - Other abnormality of red blood cells (ICD-10) Anxiety ?F41.9 - Anxiety disorder, unspecified (ICD-10) History of pelvic fracture ?Z87.81 - Personal history of (healed) traumatic fracture (ICD-10) Recurrent dislocation of shoulder ?M24.419 - Recurrent dislocation, unspecified shoulder (ICD-10) Surgical History H/O tooth extraction ?K08.409 - Partial loss of teeth, unspecified cause, unspecified class (ICD-10) Status post tonsillectomy and adenoidectomy ?Z90.89 - Acquired absence of other organs (ICD-10) History of tubal ligation ?Z98.51 - Tubal ligation status (ICD-10) Family History Other Diabetes Heart disease Lung cancer Social History Narrative: former smoker Smoking Status: Former smoker Meds Home Medications and Allergies Home Medications ?Medication ?Instructions ?Recorded ?Confirmed ?Type acetaminophen 500 mg tablet 1,000 mg PO QID PRN 09/02/24 11/04/24 History (Tylenol Extra Strength) Allergies Allergy/AdvReac Type Severity Reaction Status Date / Time No Known Allergies Allergy Unknown Verified 11/04/24 15:25 Ortho Exam Narrative Exam Narrative: She is sitting supine on the emergency room bed. She is in no acute distress. Nonlabored breathing today. Cooperative with the exam. Lucid. Right shoulder exam shows indentation in the posterior shoulder region. Prominence in the anterior shoulder region. Neurologically intact in the radial, ulnar, median, and axillary nerve distribution to sensory light touch and motor function today. Active elevation of 10?. Passive elevation of 10? before mechanical block limits further motion. 2+ radial pulse. Digits pink, warm, brisk cap refill. Difficult to assess strength as the range of motion is so very limited. Const Vital Signs, click to edit/add: Vital Signs - 24 hr 11/04/24 15:21 11/04/24 16:39 11/04/24 16:40 Pulse Rate 73 85 Pulse Rate [Left Pulse Oximeter] 95 Respiratory Rate 18 Blood Pressure 133/80 Blood Pressure [Left Upper Arm] 165/77 H Pulse Oximetry 95 94 Oxygen Delivery Method Room Air 11/04/24 16:42 11/04/24 16:45 11/04/24 16:47 Pulse Rate 84 85 91 Pulse Rate [Left Pulse Oximeter] Respiratory Rate Blood Pressure 149/77 H 170/31 H Blood Pressure [Left Upper Arm] Pulse Oximetry 95 96 93 Oxygen Delivery Method 11/04/24 16:54 11/04/24 16:57 Pulse Rate 84 Pulse Rate [Left Pulse Oximeter] Respiratory Rate Blood Pressure 147/76 H 153/107 H Blood Pressure [Left Upper Arm] Pulse Oximetry 94 Oxygen Delivery Method Results Diagnostic results Additional Comments: Three views of the right shoulder from [facility] in [place] dated 11/04/2024 were ordered by a different provider and reviewed by me. This demonstrates an anterior dislocation of the right humeral head relative to the glenoid. There is a nondisplaced greater tuberosity fracture. Also radiolucency across the glenoid suspicious for a possible nondisplaced glenoid fracture. Procedures Orthopedic Joint Reduction Joint #1: Time out performed: Yes Side: right Joint reduction location: shoulder Analgesia: procedural sedation Technique used: traction/counter-traction Post-reduction neuro exam: intact Post-reduction vascular exam: intact Post-reduction x-ray obtained: Yes Post-reduction x-ray results: not reduced Splint applied: Yes (Sling applied) Patient tolerated procedure: well Assessment and Plan Assessment and plan (1) Anterior shoulder dislocation: Status: Acute (2) Fracture, humerus: Status: Acute (3) Former smoker: Problem comment: Quit in 2022 Status: Acute Plan We had a good discussion today. I communicated to pat what her right shoulder pathology is. We acknowledge that this has been dislocated for approximately 2 weeks. I communicated that trying to reduce this is prudent, but will be likely very challenging given the chronicity. In addition, when someone has a humeral head fracture, attempted reduction can displaced the fracture or propagate the fracture. She understands. She is willing to undergo closed reduction attempt here in the emergency department under propofol sedation. Therefore, I have connected/communicated with the emergency department physicians. Dr. Fadi chavez is able and willing to administer propofol to allow muscle relaxation for Pat today. Thus, after informed consent of the risks and benefits of a closed reduction attempt in the emergency department under propofol sedation, once she was sedated and muscles relax, closed reduction attempt was performed with traction/countertraction. There was gentle manipulation of the shoulder with external rotation to try to unhinge it from the anterior glenoid. Even slight anterior push followed by more lateral push was performed. Unfortunately, this was unsuccessful. A single spot image was obtained after post reduction attempt and found to have a persistent anterior dislocation to this right shoulder. As such, at this time this may need significantly more surgical intervention. Not just open reduction, but possibly also glenoid augmentation anteriorly verses a reverse shoulder arthroplasty. Therefore, at this time I would recommend a sling to the affected right upper extremity. Analgesics p.r.n.. Follow up in orthopedic clinic next week. Discuss surgical intervention moving forward.
== END 2024-11-04 17:35 | disposition home or self-care (01) ==
PROVIDERS: Emergency Provider Emergency Medicine Emergency Medical Services; PCP Physician Assistant Medical
DX: S42.301A Unspecified fracture of shaft of humerus, right arm, initial encounter for closed fracture (principal); S43.004A Unspecified dislocation of right shoulder joint, initial encounter; W19.XXXA Unspecified fall, initial encounter
CPT/HCPCS: 23655; 73020; 73200; 99284; J2704; J7030

== ENCOUNTER 2024-11-12 14:25 | Outpatient (CLI) | payer MEDICARE, BC, SELFPAY | END 2024-11-12 14:26 | disposition home or self-care (01) | PROVIDERS: PCP Physician Assistant Medical; Visit Provider Physician Assistant Medical | DX: D64.9 Anemia, unspecified (principal); E87.1 Hypo-osmolality and hyponatremia; E03.9 Hypothyroidism, unspecified; E78.5 Hyperlipidemia, unspecified; I10 Essential (primary) hypertension; R60.0 Localized edema; D72.820 Lymphocytosis (symptomatic); C91.10 Chronic lymphocytic leukemia of B-cell type not having achieved remission; Z01.818 Encounter for other preprocedural examination | CPT/HCPCS: 80076; 82607; 82746; 83540; 83550; 83880; 83930; 87086 ==

== ENCOUNTER 2024-11-16 15:11 | Outpatient (CLI) | payer MEDICARE, BC, SELFPAY ==
--- NOTE | 2024-11-16 15:45 | CRLHL7_ITS ---
For Patients: As a result of the Century Cures Act, medical imaging exams and procedure reports are released immediately into your electronic medical record. You may view this report before your referring provider. If you have questions, please contact your health care provider. INDICATION: Leg pain and swelling. TECHNIQUE: Ultrasound venous duplex bilateral lower extremity. Compression venous exam was performed using reveles-scale, color Doppler, and spectral Doppler analysis. COMPARISON: None. FINDINGS: Deep veins: Sonographic imaging demonstrates the right common femoral, deep femoral, superficial femoral, popliteal, posterior tibial and the contralateral right common femoral veins to be fully compressible with normal color Doppler blood flow. Superficial veins: Greater saphenous vein is fully compressible. No popliteal cyst. IMPRESSION: Normal bilateral lower extremity venous ultrasound, no sign of deep venous thrombosis. Dictated by Mk Caban MD @ 11/16/2024 4:31:57 PM (Electronically Signed)
== END 2024-11-16 15:12 | disposition home or self-care (01) ==
LOC: US 15:14
PROVIDERS: PCP Physician Assistant Medical; Visit Provider Physician Assistant Medical
DX: R60.0 Localized edema (principal); M79.604 Pain in right leg; M79.605 Pain in left leg
CPT/HCPCS: 93970

== ENCOUNTER 2024-11-19 09:09 | Inpatient (IN) | payer MEDICARE, BC, SELFPAY ==
[2024-11-18] VITALS (29 sets, daily range): BP systolic 104–149; BP diastolic 45–89; PULSE 76–97; RESP 16–24; TEMP 36.2–36.8; O2SAT 89–98; BMI 20.9
--- OUTSIDE RECORDS SUMMARY | 2024-11-18 09:24 | XMS_ITS | Clinical Summary ---
Author Organization [employer] [facility] Address [place], [place] [address] Care Team Providers Care Brush Stainer Name Role Phone Unknown, Doctor Primary Care [...] Encounters Date Type Department Care Team Description 11/17/2024 8:00 AM KILN PUSHER Ancillary Procedure [facility] [address] [place] [address] Arrived 11/17/2024 Travel 11/13/2024 Orders Only [facility] [place] [address] [place] [address] JACE Jurado [id number] Lolly Mercado PA-C Outside Order (Order by EDGAR Aponte... from Last 3 Months Immunizations Name Administration Dates Next Due Influenza, High-dose Inactivated 08/08/2015,07/14 Influenza, IIV3 (Age >=3 years) 08/07/2013,10/11 Pneumococcal Poly,23-Valent (Pneumovax) 08/07/20 Td (Age >=7 Years) 03/30/2004 Family History [...] on file Legal Sex Female 7:55 AM KILN PUSHER Gender Identity Not on file Sexual Orientation [...] 1-dose 75+ series) 02/01/2024 COVID-19 vaccine series (2023- season) 2024 Influenza for age 65+ 06/14/2024 08/08/2015 , 07/30/2014, 08/07/2013, Additional history exists Procedures Procedure Name Priority Date/Time Associated Diagnosis Comments ECHO TTE COMPLETE WO CONTRAST SHIRA 11/17/2024 8:42 AM KILN PUSHER Pre-op evaluation Peripheral edema LIPID PANEL Routine 07/30/2014 9:20 AM CDT Hypertension from Last 3 Months or Most Recently Relevant to Health Maintenance Results * ECHO TTE COMPLETE WO CONTRAST (11/17/2024 8:42 AM KILN PUSHER) AORTIC VALVE MEAN PG 7 mmHg EJECTION FRACTION 68 % LVEDD 4.2 cm EJECTION FRACTION 60 - 65% Anatomical Region Laterality Modality Ultrasound 11/17/2024 8:06 AM KILN PUSHER Narrative 11/17/2024 9:51 AM KILN PUSHER ECHOCARDIOGRAM JENNIFFER ROJASAGER : 1950 74 years Study Date: 11/17/2024 8:06:13 AM Gender: F BP: 124/67 mmHg Height: 168.00 cm BSA: 1.70 m Weight: 62.00 kg Tech: [facility] Referring MD: LOLLY MERCADO Site: [facility] Reading Location: Mobile OP Patient Location: Outpatient. Procedure: 2D, Color Doppler and Spectral Doppler. Indication for study: Pre-op evaluation; Peripheral edema Cardiac Rhythm: Normal sinus.Study quality: Fair. Final Impressions: 1. Normal LV size, normal wall thickness, normal global systolic function with an estimated EF of 60 - 65%. 2. Right ventricular cavity size is normal, global systolic RV function is normal. 3. No significant valve disease detected. Comparison Compared to prior exam of 02/27/2021, there has been no significant change. Chamber Sizes and Function Normal left ventricular size, normal wall thickness, normal global systolic function with an estimated EF of 60 - 65%. No resting regional wall motion abnormality visualized. Left atrial size is normal. Right ventricular cavity size is normal, global systolic RV function is normal. RV wall thickness is normal. The right atrium is normal. Right atrial volume index is 28 ml/m . Right atrial area is 16 cm . The pulmonary artery is of normal size and origin. The sinus of Valsalva is normal sized. The ascending aorta is not well visualized. Valves, RV Pressures and Diastolic Function The aortic valve is sclerotic and trileaflet, no stenosis and no regurgitation. The mitral valve is normal in structure, trace mitral regurgitation. Indeterminate pattern of LV diastolic filling. The tricuspid valve is not well visualized. Tricuspid regurgitation is trace regurgitation. Unable to assess right ventricular systolic pressure. The pulmonic valve is not well visualized. Trace pulmonary regurgitation. Masses, Effusion, Shunts There is no pericardial effusion. The inferior vena cava is normal sized, respiratory size variation greater than 50%. Increased thickness of the atrial septum sparing the fossa ovalis consistent with lipomatous hypertrophy of the atrial septum. No left to right shunting was detected by limited color flow Doppler interrogation of the interatrial septum. MEASUREMENTS AND CALCULATIONS 2-D Measurements and LV Function: LVID (d) 4.2 cm LV FS% (2D) 31 % LVID (s) 2.9 cm LVOT diameter 1.9 cm IVS (d) 1.0 cm HR 80 bpm LVPW (d) 1.0 cm LA Vol index 33 ml/m2 Ao Sinus 3.2 cm RA Vol index 28 ml/m2 RA area 16 cm RV Max 4C (d) 3.9 cm Diastology: Mitral Tissue Doppler E Peak 0.9 m/s e', Septum 0.06 m/s A Peak 1.3 m/s e', Lateral 0.10 m/s E/A 0.6 E/e' Average 11.44 DT 207 msec Aortic Valve: Vmax 1.8 m/s AFIA (V) 1.90 cm VTI 0.38 m AFIA (I) 2.19 cm LVOT V max 1.2 m/s Max PG 13 mmHg LVOT VTI 0.28 m Mean PG 7 mmHg SV 82 ml Dim Index 0.76 SV index 48 ml/m CO 6.6 l/min CI 3.9 l/min/m Mitral Valve: MVA 3.7 cm MV P 1/2 60 msec Tricuspid Valve and estimated PA pressures: TAPSE 2.1 cm . This study was interpreted by an [facility] accredited facility. Final Procedure Note Jeremy Emmanuel MD - 11/17/2024 ECHOCARDIOGRAM JENNIFFER MENDES : 1950 74 years Study Date: 11/17/2024 8:06:13 AM Gender: F BP: 124/67 mmHg Height: 168.00 cm BSA: 1.70 m Weight: 62.00 kg Tech: [facility] Referring MD: LOLLY MERCADO Site: [facility] Reading Location: Mobile OP Patient Location: Outpatient. Procedure: 2D, Color Doppler and Spectral Doppler. Indication for study: Pre-op evaluation; Peripheral edema Cardiac Rhythm: Normal sinus.Study quality: Fair. Final Impressions: 1. Normal LV size, normal wall thickness, normal global systolic functionwith an estimated EF of 60 - 65%. 2. Right ventricular cavity size is normal, global systolic RV functionis normal. 3. No significant valve disease detected. Comparison Compared to prior exam of 02/27/2021, there has been no significantchange. Chamber Sizes and Function Normal left ventricular size, normal wall thickness, normal globalsystolic function with an estimated EF of 60 - 65%. No resting regionalwall motion abnormality visualized. Left atrial size is normal. Rightventricular cavity size is normal, global systolic RV function is normal.RV wall thickness is normal. The right atrium is normal. Right atrialvolume index is 28 ml/m . Right atrial area is 16 cm . The pulmonaryartery is of normal size and origin. The sinus of Valsalva is normalsized. The ascending aorta is not well visualized. Valves, RV Pressures and Diastolic Function The aortic valve is sclerotic and trileaflet, no stenosis and noregurgitation. The mitral valve is normal in structure, trace mitralregurgitation. Indeterminate pattern of LV diastolic filling. Thetricuspid valve is not well visualized. Tricuspid regurgitation is traceregurgitation. Unable to assess right ventricular systolic pressure. Thepulmonic valve is not well visualized. Trace pulmonary regurgitation. Masses, Effusion, Shunts There is no pericardial effusion. The inferior vena cava is normal sized,respiratory size variation greater than 50%. Increased thickness of theatrial septum sparing the fossa ovalis consistent with lipomatoushypertrophy of the atrial septum. No left to right shunting was detectedby limited color flow Doppler interrogation of the interatrial septum. MEASUREMENTS AND CALCULATIONS 2-D Measurements and LV Function: LVID (d) 4.2 cm LV FS% (2D) 31 % LVID (s) 2.9 cm LVOT diameter 1.9 cm IVS (d) 1.0 cm HR 80 bpm LVPW (d) 1.0 cm LA Vol index 33 ml/m2 Ao Sinus 3.2 cm RA Vol index 28 ml/m2 RA area 16 cm RV Max 4C (d) 3.9 cm Diastology: Mitral Tissue Doppler E Peak 0.9 m/s e', Septum 0.06 m/s A Peak 1.3 m/s e', Lateral 0.10 m/s E/A 0.6 E/e' Average 11.44 DT 207 msec Aortic Valve: Vmax 1.8 m/s AFIA (V) 1.90 cm VTI 0.38 m AFIA (I) 2.19 cm LVOT V max 1.2 m/s Max PG 13 mmHg LVOT VTI 0.28 m Mean PG 7 mmHg SV 82 ml Dim Index 0.76 SV index 48 ml/m CO 6.6 l/min CI 3.9 l/min/m Mitral Valve: MVA 3.7 cm MV P 1/2 60 msec Tricuspid Valve and estimated PA pressures: TAPSE 2.1 cm . This study was interpreted by an [facility] accredited facility. Final Lolly Mercado PA-C ECHO ORD Final Result * (ABNORMAL) LIPID PANEL (07/30/2014 9:20 AM CDT) CHOLESTEROL,TOTAL 224(H) 100 - 199 mg/dL 07/30/2014 1:46 PM CDT [facility] TRIGLYCERIDES 121 <150 mg/dL 07/30/2014 1:46 PM CDT [facility] HDL CHOLESTEROL 73 >40 mg/dL 4 1:46 PM CDT [facility] NON-HDL CHOLESTEROL 151(H) <145 mg/dl 07/30/2014 1:46 PM CDT [facility] CHOL/HDL RATIO 3.07 <4.50 07/30/2014 1:46 PM CDT [facility] LDL CHOLESTEROL 127 <=130 mg/dL 07/30/2014 1:46 PM CDT [facility] PATIENT STATUS NOT GIVEN 07/30/2014 1:46 PM CDT [facility] Blood specimen (specimen) BLOOD SPECIMEN / Unknown Venipuncture / Unknown 07/30/2014 9:20 AM CDT 07/30/2014 9:20 AM CDT us Justin Del Real MD CHEMISTRY Final Resu lt [facility] [address] [place] [address], [place] from Last 3 Months or Most Recently Relevant to Health Maintenance Insurance [facility] MEDICARE PB ONLY MEDICARE PART B HB ONLY Care Teams Brush Stainer Relationship Specialty Start Date End Date Unknown, Doctor . PCP - General 08/28/18
[2024-11-18] MEDS: 0.9 % SODIUM CHLORIDE 500 ML 500 ML 100 ML IV ×2 (09:45→11:45)
[2024-11-18] MEDS: SODIUM CHLORIDE 0.9 % (FLUSH) 10 ML SYRINGE IVF (09:45)
--- NOTE | 2024-11-18 10:46 | W.PM.H&PU ---
History & Physical Update History & Physical Update H&P Reviewed and patient assessed: No changes noted
[2024-11-18] MEDS: fentaNYL 100 MCG/2 ML inj IVP (11:03)
[2024-11-18] MEDS: MIDAZOLAM HCL 1 MG/ML inj IVP (11:03)
--- NOTE | 2024-11-18 11:10 | P.NB_ITS ---
Nerve Block Nerve Block Time Seen by Provider: 11:08 Date Seen: 11/18/24 Type of block requested by surgeon for post-operative analgesia: supraclavicular Side: right Time out performed: Yes Verification of patient name: Yes Verification of date of : Yes Site marking: site marked Name of person performing procedure: Massimo Continuous monitoring Was continuous monitoring of O2 sat, B/P, school lunch monitor, recorded every 15 minutes?: Yes Procedure Checklist: sterile prep, needles and gloves Ultrasound guided. Images saved: Yes Medications given in 5ml increments after negative aspiration: Ropivicaine %: 0.5 mL: 20 Needle gauge: 22 Precedex (mcg): 25 Patient tolerated procedure well: Yes Block Charges Block Charge (with Pro Fee): Brachial Plexus Use of Ultrasound Machine for Block: Yes- US Guidance/pain block
--- NOTE | 2024-11-18 11:10 | P.ANES_ITS ---
Anesthesia Charges Start Date/Time Anesthesia Start Date: 11/18/24 Anesthesia Start Time: 11:44 Stop Date/Time Anesthesia Stop Date: 11/18/24 Anesthesia Stop Time: 13:53 Summary Extremes of Age - Over 70 or under 1: MDA Coding CPT Codes CPT Codes: ANESTH SURGERY OF SHOULDER - 00265 ([id number]) P3 - PATIENT W/SEVERE SYS DISEASE, QK - STEEL RULE INSPECTOR 2-4 CNCRNT ANES PROC, QX - BULL DRIVER SVC W/ MD MED DIRECTION Additional Codes: Summary - Extremes of Age - Over 70 or under 1: MDA ([id number])
--- NOTE | 2024-11-18 11:10 | W.ANESCHARGE ---
Anesthesia Charges Start Date/Time Anesthesia Start Date: 11/18/24 Anesthesia Start Time: 11:44 Stop Date/Time Anesthesia Stop Date: 11/18/24 Anesthesia Stop Time: 13:53 Summary Extremes of Age - Over 70 or under 1: MDA Coding CPT Codes CPT Codes: ANESTH SURGERY OF SHOULDER - 42112 ([id number]) P3 - PATIENT W/SEVERE SYS DISEASE, QK - GEM EXPERT 2-4 CNCRNT ANES PROC, QX - CHECK AND TRANSFER BEADER SVC W/ MD MED DIRECTION Additional Codes: Summary - Extremes of Age - Over 70 or under 1: MDA ([id number])
--- NOTE | 2024-11-18 11:23 | SUR.PREOP ---
TIME?OUT:?1102 PT/RN/MDA?VERIFICATION?OF?SURGICAL?SITE,?PROCEDURE,?AND?CONSENT OBTAINED?PRIOR?TO?INVASIVE?PROCEDURE.
[2024-11-18] MEDS: CEFAZOLIN 2 GM in 0.9 % SODIUM CHLORIDE Mini-bag 100 ML IVPB (11:48)
[2024-11-18] MEDS: LACTATED RINGERS 1000 ML 1,000 ML 100 ML IV (12:56)
--- NOTE | 2024-11-18 13:31 | P.ORPRC_ITS ---
Procedure Note Date of procedure: 11/18/24 Procedure: PREOPERATIVE DIAGNOSES: 1. 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 Right shoulder full-thickness supraspinatus rotator cuff tearing with retraction NAME OF OPERATION: 1. Right shoulder open Bankart repair/capsulorrhaphy 2. Right shoulder open rotator cuff repair (supraspinatus-completely separate procedure from the Bankart procedure/subscapularis re-repair after takedown) SURGEON: Harrison Lim MD COMMUNITY ASSOCIATE: Francisco JACKMAN. Of note, a skilled assistant federal public defender was critical for this case to aide in patient positioning, tissue manipulation, arm positioning, instrument positioning, suture management, and closure. ANESTHESIA: General plus preoperative supraclavicular block. EBL: 50 mL IMPLANTS: Arthrex 1.9 mm knotless fibertak (x3); Arthrex 4.75 mm BioComposite SwiveLock suture anchor (x1); Arthrex 5.5 mm BioComposite SwiveLock suture anchor (x1) COMPLICATIONS: None evident INDICATIONS: The patient is a pleasant, 74-year-old female who has experienced right shoulder pain after a shoulder dislocation from a fall from a standing height approximately 3 weeks ago. I saw her in the emergency department 2.5 weeks ago and attempted a closed reduction under propofol sedation without success. After further counseling and literature review, it was understood that reverse shoulder arthroplasty is a viable option, but comes with a significant complication risk (27% revision surgery and 35% complication rate). Given this, and after mutual discussion, it was determined that open reduction with capsulorrhaphy/Bankart repair would be prudent. FINDINGS: Exam under anesthesia revealed humeral head resting in an anteriorly dislocated position with the posterior humeral head engaged in its Hill-Sachs defect into the glenoid. It was not reducible closed. After open reduction, it did have excellent stability. There was no recurrent dislocation once the medial capsule was repaired with the 3 anchors on the glenoid. The humeral head overall head relatively healthy chondral surfaces as did the glenoid. Additionally, the capsule and subscapularis were quality tissue density. The supraspinatus was also found to be torn with retraction medially and anteriorly. This was a separate pathology compared to the Bankart/capsular injury. PROCEDURE: Following a thorough discussion of risks, benefits, and alternatives, consent was obtained and the operative shoulder was marked. The patient was brought to the operating room and placed supine on the operating table. Induction of anesthesia was completed after preoperative supraclavicular block was administered in preop holding. Appropriate time out was performed identifying proper patient, site, and procedure. 1 g IV Ancef was administered within 1 hour of incision preoperatively. The right upper extremity was prepped and draped in the appropriate sterile fashion using ChloraPrep. This was after the patient was positioned in the lazy beach chair position with all bony prominences well padded. A longitudinal incision was made in line with the axillary crease approximately from the inferior coracoid down toward the axilla. Sharp incision through the skin and blunt dissection through subcutaneous tissue allowed identification of the cephalic vein. The deltopectoral interval was entered. Vein was retracted laterally. The pain remained intact throughout the case. Conjoined tendon was evaluated and the clavipectoral fascia released just lateral to this. The humeral head was found to be quite prominent immediately deep to the conjoined tendon/coracoid. It was not reducible at this time. We incised the subscapularis from the rotator interval down distal sparing the 3 sisters. We the subscapularis from the deep capsule for a ventral capsulorrhaphy/capsular repair to improve the tightness of the shoulder anteriorly. The tendon was captured with a tag stitch for later repair. A tenotomy of the subscapularis allowed eventual repair back to the stump on the lesser tuberosity. Subacromial space was entered and allowed mobilization of the deltoid muscle fibers. After the subscapularis was mobilized and retracted/tag, the capsulotomy was completed from the humeral side. The inferior capsule was released from the inferior humeral head minimally given the significant anterior/anteroinferior instability. We were now able to relocate the humeral head by disengaging it from the glenoid and a gentle reduction back into the glenoid vault. A thorough irrigation normal saline was now performed. The glenoid was then prepared with combination of liberator elevator and a rasp. We were able to dissect/debride the medial aspect/medial neck of the glenoid in an excellent manner through this open approach all way down around the inferior aspect of the glenoid near to the 5:30 o'clock position. Anchors then placed initially at approximately the 5:30 position on this right shoulder and marching up the clock face at approximately 4 and 2:30 o'clock. The knotless fibertak suture anchors were utilized here. The sutures were passed in horizontal mattress fashion starting at the most inferior anchor. A free needle was utilized to help us shuttle the sutures at this lower/inferior position. Thereafter, we marched up the clock face and engaged the knotless mechanism. After confirm renal anchors to have good fixation, all sutures were passed, eventually we then tightened up the capsule from the most inferior anchor margin of the clock face. While initially a finger could comfortably be placed in the inferior pouch, near the end of procedure this was not possible due to the increased tension on the inferior capsule appropriately. The humeral head still had appropriate bounce back when a posterior directed force was applied & remained stable with an anterior directed force. We then repaired the capsule laterally near the lesser tuberosity/anterolateral humerus with # 2-0 Stratafix. The subscapularis was then repaired to the tenotomy site with # 1 PDS with excellent reapproximation and security. After thorough irrigation normal saline at various stages throughout this closure, the deltopectoral interval was reapproximated with #0 Vicryl suture. Finally, closure performed of the subcutaneous and subcuticular closures with 2- 0 Vicryl and 4-0 Monocryl, respectively. Dressings were applied. Sling was applied. Patient was woken from anesthesia and transferred the PACU in stable condition. PLAN: 1. Elbow, forearm, wrist and digit range of motion as tolerated. 2. Encouraged ice. 3. Oxycodone for pain as needed. 4. Sling at all times except for ROM and showering. 5. Follow up with PA visit in 1-2 weeks for wound check. Then initiate physical therapy approximately 3.5-4 weeks for shoulder range of motion and periscapular strengthening. Of note, I do think it is reasonable for the patient to be able to discharge to home today. She has been living with a dislocated shoulder for multiple weeks.
--- NOTE | 2024-11-18 13:59 | P.ANES_ITS ---
Anesthesia Charges Start Date/Time Anesthesia Start Date: 11/18/24 Anesthesia Start Time: 11:44 Stop Date/Time Anesthesia Stop Date: 11/18/24 Anesthesia Stop Time: 13:53 Summary Extremes of Age - Over 70 or under 1: RAILROAD SIGNAL OPERATOR Coding CPT Codes CPT Codes: ANESTH SURGERY OF SHOULDER - 50095 ([id number]) P3 - PATIENT W/SEVERE SYS DISEASE, QK - ELECTRIC CELL TENDER 2-4 CNCRNT ANES PROC, QX - RAILROAD SIGNAL OPERATOR SVC W/ MD MED DIRECTION Additional Codes: Summary - Extremes of Age - Over 70 or under 1: RAILROAD SIGNAL OPERATOR ([id number])
--- NOTE | 2024-11-18 13:59 | W.ANESCHARGE ---
Anesthesia Charges Start Date/Time Anesthesia Start Date: 11/18/24 Anesthesia Start Time: 11:44 Stop Date/Time Anesthesia Stop Date: 11/18/24 Anesthesia Stop Time: 13:53 Summary Extremes of Age - Over 70 or under 1: ELECTRICAL WORKER Coding CPT Codes CPT Codes: ANESTH SURGERY OF SHOULDER - 31935 ([id number]) P3 - PATIENT W/SEVERE SYS DISEASE, QK - SPECIAL PROJECTS MANAGER 2-4 CNCRNT ANES PROC, QX - ELECTRICAL WORKER SVC W/ MD MED DIRECTION Additional Codes: Summary - Extremes of Age - Over 70 or under 1: ELECTRICAL WORKER ([id number])
--- NOTE | 2024-11-18 17:00 | SUR.PHASEII ---
Patient on 2L O2 in SDS until ambulating to bathroom at 1600. Back to recliner chair at 1605, O2 sat on room air was 74%, O2 back on at 4L. Patient took 10 minutes to recover sats stable in low 90's. Dr. Lim notified, ok to transfer to [facility].
--- NOTE | 2024-11-18 17:04 | SUR.PHASEII ---
Patient saline lock prior to patient transfer to [facility] via wheel chair on portable 4L O2.
[2024-11-18] MEDS: ACETAMINOPHEN 500 MG TABLET 1000 MG PO (17:21)
[2024-11-18] MEDS: LACTATED RINGERS 1000 ML 1,000 ML 75 ML IV (17:22)
--- NOTE | 2024-11-18 17:59 | PM.IMCN1 ---
Date of Consult Patient: [facility] Patient Consult date: 11/18/24 Requesting Physician: Orthopedics Primary Care Provider: Lolly Lucas PA-C Consult Narrative Reason for consult: Medical management Narrative: Jenniffer Regan Tonsager is a 74 year old female past medical history significant for monoclonal B-cell lymphocytosis with CLL, COPD, hypothyroidism, hypertension, hyperlipidemia, peripheral edema, hyponatremia, anemia is POD#0 s/p right shoulder open Bankart repair/capsulorrhaphy and Right shoulder open rotator cuff repair, Dr. Lim. There have been no perioperative complications or nursing concerns reported. Estimated total blood loss documented as 50ml. Updated and reviewed the active medical problems, past medical history, past surgical history, social history, allergies and medications in our electronic EMR. Patient was a same-day surgery with plans to discharge home. However, became hypoxic with saturations in the 70s. Has maintained saturations in the 90s on 3 L. mildly dyspneic. Denies chest pain. Denies headache or dizziness. Tolerating orals without nausea vomiting. Afebrile. Patient has a history of COPD. Stopped smoking approximately 2 years ago. Is not oxygen dependent at home. Does not have known history of LUIS nor does she use a CPAP at night. Has recently been working with her PCP in managing peripheral edema, currently on torsemide. Review of Systems Narrative: REVIEW OF SYSTEMS: Complete review of systems performed and negative unless otherwise stated in HPI or below. [facility] Medical History Former smoker ?Z87.891 - Personal history of nicotine dependence (ICD-10) Imbalance ?R26.89 - Other abnormalities of gait and mobility (ICD-10) Physical deconditioning ?R53.81 - Other malaise (ICD-10) Pulmonary nodule (~06/2023) ?R91.1 - Solitary pulmonary nodule (ICD-10) Adrenal adenoma ?D35.00 - Benign neoplasm of unspecified adrenal gland (ICD-10) Cholelithiasis (~05/2023) ?K80.20 - Calculus of gallbladder without cholecystitis without obstruction (ICD-10) History of pelvic fracture ?Z87.81 - Personal history of (healed) traumatic fracture (ICD-10) Recurrent dislocation of shoulder ?M24.419 - Recurrent dislocation, unspecified shoulder (ICD-10) Surgical History H/O tooth extraction ?K08.409 - Partial loss of teeth, unspecified cause, unspecified class (ICD-10) Status post tonsillectomy and adenoidectomy ?Z90.89 - Acquired absence of other organs (ICD-10) History of tubal ligation ?Z98.51 - Tubal ligation status (ICD-10) Family History Other Diabetes Heart disease Lung cancer Social History Narrative: former smoker Smoking Status: Former smoker Do you use any of these nicotine containing products: None How often do you have a drink containing alcohol: 2-3 times a week Alcohol type: hard liquor How many standard drinks containing alcohol do you have on a typical day: 1 or 2 How often do you have six or more drinks on one occasion: Never AUDIT-C Alcohol total score: 3 Non-prescribed substance use: denies use Caffeine: Yes Are you using contraception or practicing any form of control: No Meds Home Medications and Allergies Home Medications ?Medication ?Instructions ?Recorded ?Confirmed ?Type acetaminophen 500 mg tablet 1,000 mg PO QID PRN 09/02/24 11/18/24 History (Tylenol Extra Strength) Allergies Allergy/AdvReac Type Severity Reaction Status Date / Time No Known Allergies Allergy Unknown Verified 11/18/24 09:53 Exam Narrative: Exam Narrative: PHYSICAL EXAM General: Pleasant, conversant, NAD HEENT: Normocephalic, atraumatic, sclera white, EOMI, oral mucosa moist Cardiovascular: RRR, S1S2. No pitting edema Pulmonary: Diminished breath sounds throughout, no expiratory wheezes or rhonchi, mild dyspnea Neurological: Alert, answering questions appropriately, cranial nerves intact, no focal findings Extremities: No gross joint deformity or swelling. Postoperative dressing in place, dry. Immobilized. Neurovascularly intact Skin: Warm, dry. Const: Vital Signs, click to edit/add: Vital Signs - 24 hr 11/18/24 09:54 11/18/24 11:03 11/18/24 11:10 Temperature 98.1 F Pulse Rate 89 84 85 Pulse Rate [Right Pulse Oximeter] Respiratory Rate 16 16 16 Blood Pressure 139/73 136/61 126/58 L Blood Pressure [Le ft Arm] Pulse Oximetry 95 98 98 Oxygen Delivery Me thod Room Air Nasal Cannula Nasal Cannula Oxygen Flow Rate 2 2 11/18/24 11:15 11/18/24 11:20 11/18/24 11:25 Temperature Pulse Rate 84 83 82 Pulse Rate [Right Pulse Oximeter] Respiratory Rate 16 16 16 Blood Pressure 110/67 122/59 L 122/58 L Blood Pressure [Le ft Arm] Pulse Oximetry 98 96 97 Oxygen Delivery Me thod Nasal Cannula Nasal Cannula Nasal Cannula Oxygen Flow Rate 2 2 2 11/18/24 11:30 11/18/24 13:49 11/18/24 13:55 Temperature 97.1 F L Pulse Rate 83 86 82 Pulse Rate [Right Pulse Oximeter] Respiratory Rate 16 24 20 Blood Pressure 114/67 115/57 L 113/58 L Blood Pressure [Le ft Arm] Pulse Oximetry 97 94 95 Oxygen Delivery Me thod Nasal Cannula Nasal Cannula Nasal Cannula Oxygen Flow Rate 2 2 2 11/18/24 14:00 11/18/24 14:05 11/18/24 14:10 Temperature Pulse Rate 80 77 79 Pulse Rate [Right Pulse Oximeter] Respiratory Rate 20 20 20 Blood Pressure 113/58 L 113/57 L 112/60 Blood Pressure [Le ft Arm] Pulse Oximetry 95 94 96 Oxygen Delivery Me thod Nasal Cannula Nasal Cannula Nasal Cannula Oxygen Flow Rate 2 2 2 11/18/24 14:15 11/18/24 14:20 11/18/24 14:25 Temperature 97.1 F L Pulse Rate 76 80 78 Pulse Rate [Right Pulse Oximeter] Respiratory Rate 20 20 20 Blood Pressure 104/55 L 110/58 L 105/63 Blood Pressure [Le ft Arm] Pulse Oximetry 96 96 96 Oxygen Delivery Me thod Nasal Cannula Nasal Cannula Nasal Cannula Oxygen Flow Rate 2 2 2 11/18/24 14:30 11/18/24 14:45 11/18/24 15:00 Temperature 97.1 F L Pulse Rate 83 84 83 Pulse Rate [Right Pulse Oximeter] Respiratory Rate 18 18 18 Blood Pressure 104/63 116/45 L 118/59 L Blood Pressure [Le ft Arm] Pulse Oximetry 93 94 94 Oxygen Delivery Me thod Nasal Cannula Nasal Cannula Nasal Cannula Oxygen Flow Rate 2 2 2 11/18/24 15:15 11/18/24 15:30 11/18/24 15:45 Temperature Pulse Rate 89 94 85 Pulse Rate [Right Pulse Oximeter] Respiratory Rate 18 18 18 Blood Pressure 119/61 114/61 110/52 L Blood Pressure [Le ft Arm] Pulse Oximetry 94 94 92 Oxygen Delivery Me thod Nasal Cannula Room Air Nasal Cannula Oxygen Flow Rate 2 2 11/18/24 16:00 11/18/24 16:15 11/18/24 16:30 Temperature Pulse Rate 91 89 90 Pulse Rate [Right Pulse Oximeter] Respiratory Rate 18 18 18 Blood Pressure 126/69 135/60 127/60 Blood Pressure [Le ft Arm] Pulse Oximetry 89 96 95 Oxygen Delivery Me thod Nasal Cannula Nasal Cannula Nasal Cannula Oxygen Flow Rate 2 4 4 11/18/24 16:57 11/18/24 16:59 Temperature 97.7 F Pulse Rate Pulse Rate [Right Pulse Oximeter] 97 Respiratory Rate 18 18 Blood Pressure Blood Pressure [Le ft Arm] 149/89 H Pulse Oximetry 94 91 Oxygen Delivery Me thod Nasal Cannula Nasal Cannula Oxygen Flow Rate 3 3 Assessment and Plan Assessment and plan (1) Acute hypoxic respiratory failure: Problem comment: - postoperatively, oxygen saturation reported in the 70s on room air - rule out hemidiaphragm in setting of perioperative block for surgical procedure, CXR ordered - history of COPD, not oxygen dependent, VBG ordered - history peripheral edema, possible fluid overload - continue oxygen supplementation to maintain saturations > 88%, weaning as able - incentive spirometry, albuterol nebs Status: Acute (2) Pneumonia: Problem comment: - CXR shows right lower lung zone medial airspace opacity concerning for aspiration/ pneumonia. no evidence hemidiaphragm - start Unasyn - incentive spirometry, aerobika Status: Acute (3) Anterior dislocation of right shoulder: Problem comment: -POD#0 s/p right shoulder open Bankart repair/capsulorrhaphy and Right shoulder open rotator cuff repair -perioperative management including pain management and anticoagulation per Orthopedic surgery -encourage postoperative pulmonary hygiene Status: Acute (4) COPD (chronic obstructive pulmonary disease): Problem comment: - management as above, encourage pulmonary hygiene Status: Acute (5) Peripheral edema: Problem comment: - per PCP records 11/12/2024- normal BNP, 11/16/2024- torsemide 5 mg every other day - will give 1 time dose IV Lasix 40 mg, BNP ordered-122 Status: Acute (6) Hypertension: Problem comment: - continue home medications Status: Acute (7) 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 This includes time spent for the visit reviewing the chart, time spent during the visit, time spent after the visit and documentation and planning in coordination of care.
--- NOTE | 2024-11-18 18:28 | PC.NURSE ---
pt came up from same day surgery. she was 82 % on RA she needs o2 @ 2-3 L nc to keep sao2 above 90%. IV is patent. she is up with 1 assist. right arm in numb and in a sling.
[2024-11-18 18:44] LABS: HCO3 VBG 29 mmol/L (21-28); PCO2 VBG 52 mmHG (40-50); PO2 VBG < 30.1 mmHG (25-47); pH VBG 7.353 (7.32-7.43)
[2024-11-18] MEDS: FUROSEMIDE 10 MG/ML inj 40 MG IVP (19:01)
[2024-11-18] MEDS: ALBUTEROL SULFATE 2.5 MG/3 ML VIAL.NEB NEB ×2 (19:01→22:26)
[2024-11-18 19:23] LABS: NT Pro B Type NatriureticPept* 122 pg/mL
[2024-11-18] MEDS: AMPICILLIN/SULBACTAM 1.5 GM in 0.9 % SODIUM CHLORIDE Mini-bag 100 ML IVPB (19:54)
[2024-11-18] MEDS: SENNOSIDES 1 TAB TABLET 2 TAB PO (20:28)
[2024-11-18] MEDS: TRAMADOL HCL 50 MG TABLET PO (22:33)
[2024-11-19] VITALS (10 sets, daily range): BP systolic 85–114; BP diastolic 48–73; PULSE 77–90; RESP 16–18; TEMP 36.4–37.5; O2SAT 86–93
[2024-11-19] MEDS: ACETAMINOPHEN 500 MG TABLET 1000 MG PO ×4 (00:14→21:25)
[2024-11-19] MEDS: HYDROmorphone 0.5 mg/0.5 ml inj IVP ×3 (00:16→07:59)
[2024-11-19] MEDS: AMPICILLIN/SULBACTAM 1.5 GM in 0.9 % SODIUM CHLORIDE Mini-bag 100 ML IVPB ×2 (01:35→06:39)
[2024-11-19] MEDS: ALBUTEROL SULFATE 2.5 MG/3 ML VIAL.NEB NEB ×6 (01:35→21:26)
[2024-11-19] MEDS: LEVOTHYROXINE 125 MCG TABLET PO (06:37)
[2024-11-19] MEDS: TRAMADOL HCL 50 MG TABLET PO (06:38)
[2024-11-19 06:48] LABS: HCO3 VBG 29 mmol/L (21-28); PCO2 VBG 51 mmHG (40-50); PO2 VBG 36.6 mmHG (25-47); pH VBG 7.365 (7.32-7.43)
[2024-11-19 06:49] LABS: Hemoglobin* 9.8 gm/dL (12.0-16.0); Mean Corpuscular HGB Conc 32 gm/dL (32-36); Mean Corpuscular Hemoglobin 34 pg (26-34); Mean Corpuscular Volume 107 fL (80-100); Platelet Count* 304 K/uL (140-440); White Blood Count* 16.91 K/uL (4.50-11.00)
[2024-11-19 06:56] LABS: Slide Review Reflex No
--- NOTE | 2024-11-19 07:04 | PC.NURSE ---
End of shift summary: Pt has been A&O, afebrile and VSS overnight. She was able to be weaned off of supplemental O2 early in the shift and maintained between 88-92% on RA all night. She only temporarily dipped down to 84-85% after IV Dilaudid but popped back up after about an hour. Sensation returned overnight in right hand, CMS intact. Right anterior shoulder dressing C/D/I. Active ice on/off throughout the night. Pain gradually increased throughout the night to a 7-8/10 requiring a few doses of IV Dilaudid along with her PRN tramadol & scheduled Tylenol. Last tramadol given @ 0640 and pt is requesting another dose of Dilaudid after abx infuses. She?s receiving IV Unasyn q6H for RLL PNX found on CXR. PIV in L hand SL and C/D/I. Pt is hopeful on discharging home today 11/19. ?
[2024-11-19 07:09] LABS: Potassium* 4.1 mmol/L (3.6-5.1); Sodium* 137 mmol/L (135-149)
[2024-11-19 07:11] LABS: Creatinine* 0.7 mg/dL (0.5-1.5); Est. Creatinine Clearance* 45.32; Estimated Glomerular Filt Rate 90 ml/min
[2024-11-19 07:12] LABS: Blood Urea Nitrogen* 23 mg/dL (7-30)
[2024-11-19] MEDS: AMLODIPINE 5 MG TABLET PO (08:52)
[2024-11-19] MEDS: SENNOSIDES 1 TAB TABLET 2 TAB PO ×2 (08:52→21:25)
[2024-11-19] MEDS: METOPROLOL SUCCINATE (XL) 100 MG TAB PO (08:52)
[2024-11-19] MEDS: TORSEMIDE 5 MG TABLET PO (08:52)
[2024-11-19] MEDS: ATORVASTATIN CALCIUM 10 MG TABLET PO (08:52)
[2024-11-19] MEDS: LOSARTAN POTASSIUM 50 MG TABLET 100 MG PO (08:52)
[2024-11-19] MEDS: TRAMADOL HCL 50 MG TABLET 100 MG PO ×3 (10:58→23:41)
--- NOTE | 2024-11-19 11:43 | PM.ORPN ---
Subjective Subjective Date Seen: 11/19/24 Principal diagnosis: s/p right shoulder open Bankart repair and cuff repair Interval history: Patient reports doing okay. She was same-day surgery, but due to hypoxia postoperatively, admitted to the floor. On chest x-ray, she was found to have likely aspiration pneumonia. No hemidiaphragm. Currently, reports that the tramadol at current dosing is not helping her pain. Unable to take oxycodone because of gastric upset. Receiving IV Dilaudid. She has received maximum acetaminophen dosing in a 24 hour period. They continue ice. Denies fevers, chills, aches, N/V, CP, SOB/MONK, or lightheadedness. Passing flatus. Not reporting any breathing difficulty to me. She is on droplet precautions. Ortho Exam Narrative Exam Narrative: -Patient appears comfortable in recliner; no apparent acute distress. When trying to move the right shoulder, she is uncomfortable. Shoulder rests with anterior translation of the humeral head. -Alert and oriented times 3 -Operative shoulder swollen; soft, supple tissues; no obvious erythema. -Surgical dressing clean, dry, intact; no obvious drainage, no erythematous streaking peripheral to the bandage -Bilateral calves soft and supple; no significant swelling, edema, tenderness, erythema, discoloration, warmth, or palpable cords - sling in place. -2+ radial pulse, intact dermatomes and myotomes distally (5/5 strength) Const Vital Signs, click to edit/add: Vital Signs - 24 hr 11/18/24 13:49 11/18/24 13:55 11/18/24 14:00 Temperature 97.1 F L Pulse Rate 86 82 80 Pulse Rate [Right Pulse Oximeter] Respiratory Rate 24 20 20 Blood Pressure 115/57 L 113/58 L 113/58 L Blood Pressure [Left Arm] Pulse Oximetry 94 95 95 Oxygen Delivery Method Nasal Cannula Nasal Cannula Nasal Cannula Oxygen Flow Rate 2 2 2 11/18/24 14:05 11/18/24 14:10 11/18/24 14:15 Temperature Pulse Rate 77 79 76 Pulse Rate [Right Pulse Oximeter] Respiratory Rate 20 20 20 Blood Pressure 113/57 L 112/60 104/55 L Blood Pressure [Left Arm] Pulse Oximetry 94 96 96 Oxygen Delivery Method Nasal Cannula Nasal Cannula Nasal Cannula Oxygen Flow Rate 2 2 2 11/18/24 14:20 02/05/25 14:25 11/18/24 14:30 Temperature 97.1 F L 97.1 F L Pulse Rate 80 78 83 Pulse Rate [Right Pulse Oximeter] Respiratory Rate 20 20 18 Blood Pressure 110/58 L 105/63 104/63 Blood Pressure [Left Arm] Pulse Oximetry 96 96 93 Oxygen Delivery Method Nasal Cannula Nasal Cannula Nasal Cannula Oxygen Flow Rate 2 2 2 11/18/24 14:45 11/18/24 15:00 11/18/24 15:15 Temperature Pulse Rate 84 83 89 Pulse Rate [Right Pulse Oximeter] Respiratory Rate 18 18 18 Blood Pressure 116/45 L 118/59 L 119/61 Blood Pressure [Left Arm] Pulse Oximetry 94 94 94 Oxygen Delivery Method Nasal Cannula Nasal Cannula Nasal Cannula Oxygen Flow Rate 2 2 2 11/18/24 15:30 11/18/24 15:45 11/18/24 16:00 Temperature Pulse Rate 94 85 91 Pulse Rate [Right Pulse Oximeter] Respiratory Rate 18 18 18 Blood Pressure 114/61 110/52 L 126/69 Blood Pressure [Left Arm] Pulse Oximetry 94 92 89 Oxygen Delivery Method Room Air Nasal Cannula Nasal Cannula Oxygen Flow Rate 2 2 11/18/24 16:15 11/18/24 16:30 11/18/24 16:57 Temperature 97.7 F Pulse Rate 89 90 Pulse Rate [Right Pulse Oximeter] 97 Respiratory Rate 18 18 18 Blood Pressure 135/60 127/60 Blood Pressure [Left Arm] 149/89 H Pulse Oximetry 96 95 94 Oxygen Delivery Method Nasal Cannula Nasal Cannula Nasal Cannula Oxygen Flow Rate 4 4 3 11/18/24 16:59 11/18/24 19:00 11/18/24 19:30 Temperature 97.9 F Pulse Rate Pulse Rate [Right Pulse Oximeter] 93 Respiratory Rate 18 20 Blood Pressure Blood Pressure [Left Arm] 115/83 Pulse Oximetry 91 92 94 Oxygen Delivery Method Nasal Cannula Nasal Cannula Room Air Oxygen Flow Rate 3 0.5 11/18/24 23:00 11/18/24 23:00 11/18/24 23:00 Temperature 98.2 F Pulse Rate Pulse Rate [Right Pulse Oximeter] 90 90 Respiratory Rate 18 18 18 Blood Pressure Blood Pressure [Left Arm] 115/56 L Pulse Oximetry 94 94 Oxygen Delivery Method Room Air Room Air Oxygen Flow Rate 11/19/24 03:00 11/19/24 07:55 11/19/24 07:55 Temperature 97.5 F L 98.2 F Pulse Rate Pulse Rate [Right Pulse Oximeter] 90 82 Respiratory Rate 18 16 16 Blood Pressure Blood Pressure [Left Arm] 100/55 L 114/54 L Pulse Oximetry 92 92 92 Oxygen Delivery Method Room Air Room Air Room Air Oxygen Flow Rate 11/19/24 08:21 11/19/24 11:00 Temperature 98.6 F Pulse Rate Pulse Rate [Right Pulse Oximeter] 82 77 Respiratory Rate 16 16 Blood Pressure Blood Pressure [Left Arm] 111/73 Pulse Oximetry 93 Oxygen Delivery Method Room Air Oxygen Flow Rate Assessment and Plan Assessment and plan (1) Acute hypoxic respiratory failure: Problem details: - postoperatively, oxygen saturation reported in the 70s on room air - rule out hemidiaphragm in setting of perioperative block for surgical procedure, CXR ordered - history of COPD, not oxygen dependent, VBG ordered - history peripheral edema, possible fluid overload - continue oxygen supplementation to maintain saturations > 88%, weaning as able - incentive spirometry, albuterol nebs Status: Acute (2) Pneumonia: Problem details: - CXR shows right lower lung zone medial airspace opacity concerning for aspiration/ pneumonia. no evidence hemidiaphragm - start Unasyn - incentive spirometry, aerobika Status: Acute (3) Anterior dislocation of right shoulder: Problem details: -POD#1 s/p right shoulder open Bankart repair/capsulorrhaphy and Right shoulder open rotator cuff repair -perioperative management including pain management and anticoagulation per Orthopedic surgery -encourage postoperative pulmonary hygiene Status: Acute (4) COPD (chronic obstructive pulmonary disease): Problem details: - management as above, encourage pulmonary hygiene Status: Acute (5) Peripheral edema: Problem details: - per PCP records 11/12/2024- normal BNP, 11/16/2024- torsemide 5 mg every other day - will give 1 time dose IV Lasix 40 mg, BNP ordered-122 Status: Acute (6) Hypertension: Problem details: - continue home medications Status: Acute (7) 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 - Social work consult for discharge planning - Prescribed analgesics as needed - she is unable to take oxycodone due to GI upset, unable to take Mabel due to acetaminophen maxed out, I believe oral Dilaudid is too strong; thus we will try increasing her tramadol dose and frequency to see if this helps her pain. If this is not helpful, then we may consider oral Dilaudid. Spoke to med surg charge nurse regarding this plan. Continue icing. - Anticipation is for discharge to home with family/friends once patient remains medically stable, and pain is controlled
[2024-11-19] MEDS: AMPICILLIN/SULBACTAM 3 GM in 0.9 % SODIUM CHLORIDE Mini-bag 100 ML IVPB ×2 (15:10→21:26)
--- NOTE | 2024-11-19 15:46 | PC.NURSE ---
End of shift. pt has been very pleasant. she had pain this am and she got po tramadol with little relief. so got IV Dilaudid and talked to MD Tramadol was increased. Pt is A&O x4. she has been on RA most of the day. CMS in right arm intact. Right anterior shoulder dressing C/D/I. Active ice on/off. 100 tramadol & scheduled Tylenol. works well with pain. IV Unasyn for RLL PNX. IV in L hand SL and C/D/I. she is up with SBA
--- NOTE | 2024-11-19 15:46 | PM.IMPN1 ---
Progress Note: A&P Assessment and plan (1) Acute hypoxic respiratory failure: Problem details: - postoperatively, oxygen saturation reported in the 70s on room air - rule out hemidiaphragm in setting of perioperative block for surgical procedure, CXR ordered - history of COPD, not oxygen dependent, VBG ordered - history peripheral edema, possible fluid overload - continue oxygen supplementation to maintain saturations > 88%, weaning as able - incentive spirometry, albuterol nebs Status: Acute (2) Pneumonia: Problem details: - CXR shows right lower lung zone medial airspace opacity concerning for aspiration/ pneumonia. no evidence hemidiaphragm - start Unasyn - incentive spirometry, aerobika Status: Acute (3) Anterior dislocation of right shoulder: Problem details: -POD#1 s/p right shoulder open Bankart repair/capsulorrhaphy and Right shoulder open rotator cuff repair -perioperative management including pain management and anticoagulation per Orthopedic surgery -encourage postoperative pulmonary hygiene Status: Acute (4) COPD (chronic obstructive pulmonary disease): Problem details: - management as above, encourage pulmonary hygiene Status: Acute (5) Peripheral edema: Problem details: - per PCP records 11/12/2024- normal BNP, 11/16/2024- torsemide 5 mg every other day - will give 1 time dose IV Lasix 40 mg, BNP ordered-122 Status: Acute (6) Hypertension: Problem details: - continue home medications Status: Acute (7) 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 Pt feels better and is not short of breath, satting 93% on RA. Afebrile, +ve cough w sputum. Exam Narrative: Exam Narrative: Physical exam GENERAL: Comfortable, no acute distress. HEAD AND NECK: Atraumatic, normocephalic CARDIOVASCULAR: RRR. Normal S1, S2. No murmurs. RESPIRATORY: Clear to auscultation B/L. Diminished air entry B/L. No wheezes GASTROINTESTINAL: Not distended, not tender to palpation. NEUROLOGY: Alert, awake, oriented X 3. Normal speech. PSYCH: Normal mood, normal affect. Const: Vital Signs, click to edit/add: Vital Signs - 24 hr 11/18/24 16:00 11/18/24 16:15 11/18/24 16:30 Temperature Pulse Rate 91 89 90 Pulse Rate [Right Pulse Oximeter] Respiratory Rate 18 18 18 Blood Pressure 126/69 135/60 127/60 Blood Pressure [Le ft Arm] Pulse Oximetry 89 96 95 Oxygen Delivery Me thod Nasal Cannula Nasal Cannula Nasal Cannula Oxygen Flow Rate 2 4 4 11/18/24 16:57 11/18/24 16:59 11/18/24 19:00 Temperature 97.7 F 97.9 F Pulse Rate Pulse Rate [Right Pulse Oximeter] 97 93 Respiratory Rate 18 18 20 Blood Pressure Blood Pressure [Le ft Arm] 149/89 H 115/83 Pulse Oximetry 94 91 92 Oxygen Delivery Me thod Nasal Cannula Nasal Cannula Nasal Cannula Oxygen Flow Rate 3 3 0.5 11/18/24 19:30 11/18/24 23:00 11/18/24 23:00 Temperature Pulse Rate Pulse Rate [Right Pulse Oximeter] 90 Respiratory Rate 18 18 Blood Pressure Blood Pressure [Le ft Arm] Pulse Oximetry 94 94 Oxygen Delivery Me thod Room Air Room Air Oxygen Flow Rate 11/18/24 23:00 11/19/24 03:00 11/19/24 07:55 Temperature 98.2 F 97.5 F L Pulse Rate Pulse Rate [Right Pulse Oximeter] 90 90 Respiratory Rate 18 18 16 Blood Pressure Blood Pressure [Le ft Arm] 115/56 L 100/55 L Pulse Oximetry 94 92 92 Oxygen Delivery Me thod Room Air Room Air Room Air Oxygen Flow Rate 11/19/24 07:55 11/19/24 08:21 11/19/24 11:00 Temperature 98.2 F 98.6 F Pulse Rate Pulse Rate [Right Pulse Oximeter] 82 82 77 Respiratory Rate 16 16 16 Blood Pressure Blood Pressure [Le ft Arm] 114/54 L 111/73 Pulse Oximetry 92 93 Oxygen Delivery Me thod Room Air Room Air Oxygen Flow Rate Labs Labs: Laboratory Results - last 24 hr 11/18/24 11/19/24 18:43 06:29 WBC 16.91 H RBC 2.90 L Hgb 9.8 L Hct 31.0 L MCV 107 H MCH 34 MCHC 32 Plt Count 304 VBG pH 7.353 7.365 VBG pCO2 52 H 51 H VBG pO2 < 30.1 36.6 VBG HCO3 29 H 29 H Sodium 137 Potassium 4.1 BUN 23 Creatinine 0.7 Estimated Creat Clear 45.32 Estimated GFR 90 NT-Pro-B Natriuret Pep 122
[2024-11-20] MEDS: ACETAMINOPHEN 500 MG TABLET 1000 MG PO ×2 (02:32→08:49)
[2024-11-20] MEDS: ALBUTEROL SULFATE 2.5 MG/3 ML VIAL.NEB NEB ×3 (02:32→10:15)
[2024-11-20] MEDS: AMPICILLIN/SULBACTAM 3 GM in 0.9 % SODIUM CHLORIDE Mini-bag 100 ML IVPB ×2 (02:35→08:49)
[2024-11-20 02:49] VITALS: BP 127/51; PULSE 76; RESP 18; TEMP 37.2; O2SAT 90
[2024-11-20] MEDS: LEVOTHYROXINE 125 MCG TABLET PO (06:01)
[2024-11-20] MEDS: TRAMADOL HCL 50 MG TABLET 100 MG PO ×2 (06:20→12:55)
--- NOTE | 2024-11-20 06:42 | PC.NURSE ---
End of shift note [id number]: Pt A&Ox4 and able to make needs known. Pt transfers/ambulates with SBA in room. Dressing to R anterior shoulder C/D/I and CMS to RUE intact. Pt continent of bladder. Pain to R shoulder/arm controlled with ice, rest and scheduled and PRN pain medications. Pt requested to sleep in recliner overnight. Pt reports intermittent productive cough with yellow sputum as she continues to be treated for PNX. O2 1-1.5 LPM administered via NC due to O2 sat of 86% on RA. Pt has been afebrile throughout the shift. No c/o CP or N/V noted. Call light within reach. ?
[2024-11-20 08:16] VITALS: BP 112/50; PULSE 87; RESP 18; TEMP 36.9; O2SAT 90
[2024-11-20] MEDS: TORSEMIDE 5 MG TABLET PO (08:49)
[2024-11-20] MEDS: AMLODIPINE 5 MG TABLET PO (08:49)
[2024-11-20] MEDS: SENNOSIDES 1 TAB TABLET 2 TAB PO (08:49)
[2024-11-20] MEDS: LOSARTAN POTASSIUM 50 MG TABLET 100 MG PO (08:49)
[2024-11-20] MEDS: METOPROLOL SUCCINATE (XL) 100 MG TAB PO (08:49)
[2024-11-20] MEDS: ATORVASTATIN CALCIUM 10 MG TABLET PO (08:49)
[2024-11-20 11:24] VITALS: BP 102/57; PULSE 77; RESP 16; TEMP 37; O2SAT 91
--- NOTE | 2024-11-20 13:28 | PM.IMPN1 ---
Progress Note: A&P Assessment and plan (1) Acute hypoxic respiratory failure: Problem details: - postoperatively, oxygen saturation reported in the 70s on room air - rule out hemidiaphragm in setting of perioperative block for surgical procedure, CXR ordered - history of COPD, not oxygen dependent, VBG ordered - history peripheral edema, possible fluid overload - continue oxygen supplementation to maintain saturations > 88%, weaning as able - incentive spirometry, albuterol nebs Status: Acute (2) Pneumonia: Problem details: - CXR shows right lower lung zone medial airspace opacity concerning for aspiration/ pneumonia. no evidence hemidiaphragm - start Unasyn - incentive spirometry, aerobika Status: Acute (3) Anterior dislocation of right shoulder: Problem details: -POD#1 s/p right shoulder open Bankart repair/capsulorrhaphy and Right shoulder open rotator cuff repair -perioperative management including pain management and anticoagulation per Orthopedic surgery -encourage postoperative pulmonary hygiene Status: Acute (4) COPD (chronic obstructive pulmonary disease): Problem details: - management as above, encourage pulmonary hygiene Status: Acute (5) Peripheral edema: Problem details: - per PCP records 11/12/2024- normal BNP, 11/16/2024- torsemide 5 mg every other day - will give 1 time dose IV Lasix 40 mg, BNP ordered-122 Status: Acute (6) Hypertension: Problem details: - continue home medications Status: Acute (7) 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 Subjective Date Seen: 11/20/24 Interval history: Patient seen and examined at bedside. Pt feels better. Pt doesnt have an appetite, encouraged to eat. Exam Narrative: Exam Narrative: Physical exam GENERAL: Comfortable, no acute distress. HEAD AND NECK: Atraumatic, normocephalic CARDIOVASCULAR: RRR. Normal S1, S2. No murmurs. RESPIRATORY: Clear to auscultation B/L. Reduced air entry in Rt lower lung GASTROINTESTINAL: Not distended, not tender to palpation. NEUROLOGY: Alert, awake, oriented X 3. Normal speech. PSYCH: Normal mood, normal affect. Const: Vital Signs, click to edit/add: Vital Signs - 24 hr 11/19/24 15:00 11/19/24 15:00 11/19/24 15:00 Temperature 97.9 F Pulse Rate [Right Pulse Oximeter] 77 77 Pulse Rate [Right Radial] Respiratory Rate 16 16 16 Blood Pressure [Le ft Arm] 104/53 L Pulse Oximetry 91 91 Oxygen Delivery Me thod Room Air Room Air Oxygen Flow Rate 11/19/24 19:00 11/19/24 23:00 11/19/24 23:27 Temperature 97.8 F Pulse Rate [Right Pulse Oximeter] 83 86 Pulse Rate [Right Radial] Respiratory Rate 16 16 Blood Pressure [Le ft Arm] 85/48 L Pulse Oximetry 91 86 L Oxygen Delivery Me thod Room Air Room Air Oxygen Flow Rate 11/19/24 23:30 11/19/24 23:32 11/20/24 02:49 Temperature 99.5 F 98.9 F Pulse Rate [Right Pulse Oximeter] 86 76 Pulse Rate [Right Radial] Respiratory Rate 16 16 18 Blood Pressure [Le ft Arm] 114/60 127/51 L Pulse Oximetry 91 91 90 Oxygen Delivery Me thod Nasal Cannula Nasal Cannula Nasal Cannula Oxygen Flow Rate 1.5 1.5 1 11/20/24 08:16 11/20/24 08:16 11/20/24 11:24 Temperature 98.5 F 98.6 F Pulse Rate [Right Pulse Oximeter] Pulse Rate [Right Radial] 87 77 Respiratory Rate 18 18 16 Blood Pressure [Le ft Arm] 112/50 L 102/57 L Pulse Oximetry 90 90 91 Oxygen Delivery Me thod Room Air Room Air Room Air Oxygen Flow Rate
--- NOTE | 2024-11-20 15:58 | PC.SOCIAL ---
Discharge planning: barnworker groom met with pt to check-in and discuss her going home. Pt states that she feels good about going home and has no concerns. Pt is thankful she is able to go home today before the snowstorm comes tomorrow. Pt lives with her in a [address] apartment complex in [place], [place] and have plenty of friends in the building that can also help, if needed. Pt also has a very supportive family and children. Social work to follow-up as needed.
== END 2024-11-20 15:55 | disposition home or self-care (01) | DRG 981 ==
LOC: OR 09:23 → MEDSURG 09:23
PROVIDERS: Physician Assistant; Admitting Provider Student in an Organized Health Care Education/Training Program; PCP Physician Assistant Medical; Visit Provider Orthopaedic Surgery Sports Medicine
PROC: 0LM10ZZ Reattachment of Right Shoulder Tendon, Open Approach (ICD-10-PCS; CPT 23455; principal; 2024-11-18 10:45)
DX: J95.821 Acute postprocedural respiratory failure (principal); J69.0 Pneumonitis due to inhalation of food and vomit; C91.10 Chronic lymphocytic leukemia of B-cell type not having achieved remission; J44.9 Chronic obstructive pulmonary disease, unspecified; M24.411 Recurrent dislocation, right shoulder; S43.431A Superior glenoid labrum lesion of right shoulder, initial encounter; S46.011A Strain of muscle(s) and tendon(s) of the rotator cuff of right shoulder, initial encounter; G89.18 Other acute postprocedural pain; E03.9 Hypothyroidism, unspecified; I10 Essential (primary) hypertension; E78.5 Hyperlipidemia, unspecified; R60.0 Localized edema; M79.604 Pain in right leg; M79.605 Pain in left leg
CPT/HCPCS: 01630; 36415; 64415; 71045; 76942; 82565; 82803; 83880; 84132; 84295; 84520; 85027; 93970; 94640; 94761; 97161; 97165; 97535; 99100; A9270; C1713; J0295; J0330; J0690; J1100; J1171; J1940; J2250; J2371; J2405; J2704; J2795; J3010; J3490; J7030; J7120

== ENCOUNTER 2024-12-02 11:00 | Outpatient (RCR) | payer MEDICARE, BC, SELFPAY ==
[2024-12-02 11:00] LABS: Basophils Percent Auto 0.2 % (0.0-3.0); Eosinophils Percent Auto 0.6 % (0.0-7.0); Hematocrit 34.6 % (33.0-51.0); Hemoglobin* 10.9 gm/dL (12.0-16.0); Immature Granulocytes Pct Auto 0.2 %; Lymphocytes Percent Auto 34.2 % (20-44); Mean Corpuscular HGB Conc 32 gm/dL (32-36); Mean Corpuscular Hemoglobin 33 pg (26-34); Mean Corpuscular Volume 104 fL (80-100); Monocytes Percent Auto 3.6 % (0.0-11.0); Neutrophils Percent Auto 61.2 % (42.0-72.0); Platelet Count* 402 K/uL (140-440); Red Blood Count 3.32 m/uL (4.00-5.20); White Blood Count* 14.64 K/uL (4.50-11.00)
[2024-12-02 11:01] LABS: Slide Review Reflex No
[2024-12-02 11:22] LABS: Albumin* 4.1 g/dL (3.3-5.0)
[2024-12-02 11:23] LABS: Chloride* 100 mmol/L (96-114); Potassium* 3.8 mmol/L (3.6-5.1); Sodium* 138 mmol/L (135-149)
[2024-12-02 11:25] LABS: Anion Gap 8 mEq/L (7-15); Aspartate Amino Transferase* 26 U/L (12-35); Bilirubin Total* 0.4 mg/dL (0.1-1.5); Carbon Dioxide* 30 mmol/L (20-32); Creatinine* 0.7 mg/dL (0.5-1.5); Est. Creatinine Clearance* 38.44; Estimated Glomerular Filt Rate 90 ml/min
[2024-12-02 11:26] LABS: Alanine Aminotransferase* 23 U/L (4-35); Alkaline Phosphatase* 74 U/L (40-150); Blood Urea Nitrogen* 14 mg/dL (7-30); Calcium* 9.1 mg/dL (8.4-10.6); Glucose* 119 mg/dL (60-115); Lactate Dehydrogenase* 195 U/L (120-246); Total Protein* 6.6 g/dL (6.0-8.3)
--- NOTE | 2024-12-02 15:41 | ONC.NURNOTE ---
Labs reviewed by Dr. Celestin and no concerns. Absence Management Consultant called pt to update her with results. Pt to follow up in 3 months with labs.
== END 2025-03-01 23:59 | disposition home or self-care (01) ==
LOC: CCIC 11:00
PROVIDERS: PCP Physician Assistant Medical; Referring Provider Physician Assistant Medical; Visit Provider Internal Medicine Hematology & Oncology
DX: C91.10 Chronic lymphocytic leukemia of B-cell type not having achieved remission (principal); D72.820 Lymphocytosis (symptomatic)
CPT/HCPCS: 36415; 80053; 83615; 85025; 99202; 99203; 99204

== ENCOUNTER 2025-01-20 12:51 | Outpatient (CLI) | payer MEDICARE, BC, SELFPAY ==
--- NOTE | 2025-01-20 | CRLHL7_ITS ---
For Patients: As a result of the Century Cures Act, medical imaging exams and procedure reports are released immediately into your electronic medical record. You may view this report before your referring provider. If you have questions, please contact your health care provider. Indication: Radiculopathy. Technique: Multiplanar, multisequence MRI of the lumbar spine was performed without intravenous contrast. Comparison: Lumbar spine radiographs 10/09/2016. Findings: There are 5 lumbar type vertebral segments identified. The vertebral body heights are maintained without evidence of fracture. There is no discrete T1 hypointense marrow infiltrating process. The conus medullaris terminates at L1-2, normal. Cauda equina appears unremarkable. T12-L1: No spinal canal or neural foraminal stenosis. L1-2: No spinal canal or neural foraminal stenosis. L2-3: Disc degeneration. Disc bulge with facet arthropathy resulting in minimal spinal canal narrowing. Mild neural foraminal narrowing. Moderate facet arthropathy. L3-4: Disc degeneration. Disc bulge combined with facet arthropathy results in mild spinal canal narrowing. Mild neural foraminal narrowing. Moderate facet arthropathy. L4-5: Disc degeneration with opposing endplate degenerative marrow edema (Modic type 1). Disc bulge results in mild spinal canal narrowing. Moderate left and mild right neural foraminal narrowing. Moderate facet arthropathy. L5-S1: Disc degeneration. No spinal canal narrowing. Moderate right and mild left neural foraminal narrowing. Moderate facet arthropathy. Moderate sacroiliac joint osteoarthritis. Impression: 1. At L4-5, disc degeneration with mild spinal canal and moderate left neural foraminal narrowing. 2. At L5-S1, moderate right neural foraminal stenosis. 3. Moderate multilevel facet arthropathy. Dictated by Hari Esparza MD @ 01/21/2025 1:24:55 PM (Electronically Signed)
== END 2025-01-20 12:52 | disposition home or self-care (01) ==
LOC: MRI 12:53
PROVIDERS: PCP Emergency Medicine; Visit Provider Orthopaedic Surgery Sports Medicine
DX: M54.16 Radiculopathy, lumbar region (principal); M51.369 Other intervertebral disc degeneration, lumbar region without mention of lumbar back pain or lower extremity pain; M48.07 Spinal stenosis, lumbosacral region
CPT/HCPCS: 72148

== ENCOUNTER 2025-01-27 12:52 | Outpatient (CLI) | payer MEDICARE, BC, SELFPAY ==
--- NOTE | 2025-01-27 13:00 | CRLHL7_ITS ---
For Patients: As a result of the Century Cures Act, medical imaging exams and procedure reports are released immediately into your electronic medical record. You may view this report before your referring provider. If you have questions, please contact your health care provider. INDICATION: Lung cancer screening. History of smoking. High risk patient with greater than 50 pack-year smoking history. TECHNIQUE: Low-dose lung cancer screening non-contrast CT chest. Dose reduction techniques were used. COMPARISON: None. FINDINGS: NODULES: A ground-glass nodule with a developing solid component is noted in the right upper lobe. This measures about 10.3 millimeters. A faint ground-glass nodule is noted in the superior segment of the left lower lobe measuring 9.1 millimeters. No definite solid component. LUNGS AND PLEURA: Emphysema. Linear areas of scarring and or atelectasis at the bases. No pleural effusion, pneumothorax or pleural-based disease MEDIASTINUM: Heart size top normal. No mediastinal or hilar adenopathy or mass. CORONARY ARTERY CALCIFICATION: Yes LIMITED UPPER ABDOMEN: Normal. MUSCULOSKELETAL: Demineralization, degenerative changes and kyphosis IMPRESSION: 1. Ground-glass nodule with developing solid component in the right upper lobe measuring 10.3 millimeters in greatest dimension. There is also a ground-glass nodule without solid component in the superior segment of the left lower lobe measuring 9.1 millimeters. The larger of the 2 nodules with a solid component is considered suspicious. Recommendation: PET-CT 4A: Suspicious. (5-15% risk of malignancy) -Solid nodule(s): Greater than or equal to 8 mm to <15 mm at baseline; or growing nodule(s) <8 mm; or new nodule 6 mm to <8 mm -Subsolid nodule(s): Greater than or equal to 6 mm total diameter with solid component greater than or equal to 6 mm to <8 mm; or new or growing solid component <4 mm -Any size endobronchial nodule Please note that all CT scans at this facility use dose modulation, iterative reconstruction, and/or weight-based dosing when appropriate to reduce radiation dose to as low as reasonably achievable. Dictated by Washington Austin MD @ 01/29/2025 7:50:06 AM (Electronically Signed)
== END 2025-01-27 12:53 | disposition home or self-care (01) ==
LOC: CT 12:54
PROVIDERS: PCP Emergency Medicine; Visit Provider Physician Assistant Medical
DX: Z12.2 Encounter for screening for malignant neoplasm of respiratory organs (principal); R91.8 Other nonspecific abnormal finding of lung field; Z87.891 Personal history of nicotine dependence
CPT/HCPCS: 71271

== ENCOUNTER 2025-04-01 14:55 | Outpatient (CLI) | payer MEDICARE, BC, SELFPAY ==
--- NOTE | 2025-04-01 15:00 | CRLHL7_ITS ---
For Patients: As a result of the Century Cures Act, medical imaging exams and procedure reports are released immediately into your electronic medical record. You may view this report before your referring provider. If you have questions, please contact your health care provider. Indication: Solitary pulmonary nodule Technique: Patient was injected in the right antecubital vein with 14.15 mCi FDG intravenously, with PET-CT imaging performed from the skull base to mid thighs [address] images were obtained for attenuation correction and localization, and do not replace a diagnostic quality examination. Blood glucose: 88 mg/dL. Comparison: Chest CT performed 01/27/2025 Findings: Liver background: SUVMean 2.4 Mediastinal blood pool background: SUVMean 2.0 Head and Neck Brain: No abnormal foci of uptake appreciated. Sinuses, orbits, mastoids: No significant abnormality or abnormal uptake appreciated. Oral cavity, pharynx, larynx: No significant abnormality or abnormal uptake appreciated. Lymph nodes: No enlarged or avid nodes appreciated. Thyroid: Grossly unremarkable. Chest Lungs: No abnormal foci of uptake appreciated. A 10 millimeter ground-glass nodule in the right upper lobe is unchanged in size and demonstrates no significant uptake. A 9 millimeter ground-glass nodule in the superior segment left lower lobe demonstrates no significant FDG uptake. Scattered areas of atelectasis and/or scarring are noted. Mediastinum: Calcific coronary arterial and aortic atherosclerosis. Mild uptake in the proximal esophagus likely physiologic or mildly inflammatory. Lymph nodes: No enlarged or avid nodes appreciated. Abdomen and Pelvis Hepatobiliary: No abnormal foci of uptake. No significant abnormality appreciated. Cholelithiasis. Spleen: Unremarkable. Pancreas: Unremarkable. Adrenal glands: Unremarkable. Kidneys: Parenchyma appears grossly unremarkable with no abnormal uptake appreciated. No calculi. No hydronephrosis. Bowel: Ill-defined uptake in the cecum likely physiologic with no CT evidence of a correlate mass lesion. Focal uptake in the distal sigmoid colon which is associated with slight wall thickening noted, SUV max 8.2. Vascular: No significant abnormality appreciated. Lymph nodes: No enlarged or avid nodes appreciated. Peritoneum: No avid mass. No free air. No free fluid. : No abnormal uptake appreciated. Soft tissues: No avid soft tissue lesion appreciated. Bones: No abnormal uptake. No lytic or blastic lesion. No acute or subacute appearing fracture. Degenerative changes of the spine and pelvis. Impression: 1. No abnormal uptake associated with a 10 millimeter right upper lobe 9 millimeter left lower lobe ground-glass nodules. However, the solid components of these nodules are minimal in size, and this does not exclude the possibility of minimally invasive adenocarcinoma of the lung, which may be negative on PET-CT. Recommend tissue sampling or three-month interval repeat chest CT. 2. Intense focal uptake along the distal sigmoid colon associated with slight wall thickening. Neoplasm not excluded. Endoscopy recommended. 3. Ill-defined areas of high-level uptake noted throughout the cecum. Favored to be physiologic, but this could also be evaluated with endoscopy of the bowel. Dictated by Adryan Sotelo MD @ 04/03/2025 7:00:02 PM (Electronically Signed)
--- OUTSIDE RECORDS SUMMARY | 2025-04-02 00:54 | XMS_ITS | Clinical Summary ---
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 Gender Identity Not on file Sexual Orientation [...] 08/07/2013 12:45 PM CDT Plan of Treatment Upcoming Encounters Date Type Department Care Team (Late st Contact Info) Description 07/13/2025 3:00 PM CDT Office Visit [facility] [address] [place] [id number] Juno Gray MD [address] [place] [id number] Health Maintenance Due Date Last Done Comments Tdap 02/01/1960 Depression screening for age 12+ 1961 BMI (ht and wt on same day) for age 18+ 1967 Hepatitis C screening for age 18-79 1967 Zoster (shingles) series for age 50+ (1 of 2) 1999 Pneumococcal series for age 50+ (2 of 2 - PCV) 08/07/2002 08/07/2001 DEXA/DXA scan for age 65+ 2014 Tetanus booster 03/30/2014 03/30/2004, 03/30/2004 RSV vaccine for adults or (1 - 1-dose 75+ series) 02/01/2024 COVID-19 vaccine series (2023- season) 2024 Influenza Vaccine (Season Ended) 2025 08/08/2015, 07/30/2014, 08/07/2013, Additional history exists Hepatitis B series for 19+ Aged Out N o longer eligible based on patient's age to complete this topic Insurance [facility] MEDICARE [place] ONLY MEDICARE PART B HB ONLY Care Teams Sand Screener Relationship Specialty Start Date End Date Unknown, Doctor . PCP - General 08/28/18
== END 2025-04-01 14:56 | disposition home or self-care (01) ==
LOC: RAD 14:57
PROVIDERS: PCP Emergency Medicine; Visit Provider Physician Assistant Medical
DX: R91.1 Solitary pulmonary nodule (principal)
CPT/HCPCS: 78815; A9552

== ENCOUNTER 2025-04-08 14:00 | Outpatient (RCR) | payer MEDICARE, BC, SELFPAY ==
[2025-03-03 12:13] LABS: Hematocrit* 42.5 % (33.0-51.0); Hemoglobin* 14.1 gm/dL (12.0-16.0); Immature Granulocytes Abs Auto 0.02 K/uL (0.00-0.30); Immature Granulocytes Pct Auto 0.2 %; Lymphocytes Absolute Auto 3.18 K/uL (0.90-2.90); Mean Corpuscular HGB Conc 33 gm/dL (32-36); Mean Corpuscular Hemoglobin 33 pg (26-34); Mean Corpuscular Volume 100 fL (80-100); RDW Coefficient of Variation % 14.1 % (11.5-15.5); Red Blood Count* 4.27 m/uL (4.00-5.20); White Blood Count* 10.93 K/uL (4.50-11.00)
[2025-03-03 12:14] LABS: Slide Review Reflex No
[2025-03-03 12:35] LABS: Albumin* 4.7 g/dL (3.3-5.0); Chloride* 104 mmol/L (96-114); Potassium* 3.8 mmol/L (3.6-5.1); Sodium* 140 mmol/L (135-149)
[2025-03-03 12:37] LABS: Alanine Aminotransferase* 31 U/L (4-35); Aspartate Amino Transferase* 40 U/L (12-35); Blood Urea Nitrogen* 14 mg/dL (7-30); Creatinine* 0.6 mg/dL (0.5-1.5); Estimated Glomerular Filt Rate 93 ml/min
[2025-03-03 12:38] LABS: Alkaline Phosphatase* 78 U/L (40-150); Anion Gap 9 mEq/L (7-15); Bilirubin Total* 0.8 mg/dL (0.1-1.5); Calcium* 9.5 mg/dL (8.4-10.6); Carbon Dioxide* 27 mmol/L (20-32); Glucose* 97 mg/dL (60-115); Total Protein* 7.4 g/dL (6.0-8.3)
== END 2025-08-30 23:59 | disposition home or self-care (01) ==
LOC: CCIC 14:00
PROVIDERS: Internal Medicine Hematology & Oncology; PCP Emergency Medicine; Visit Provider Internal Medicine Hematology & Oncology
DX: C91.10 Chronic lymphocytic leukemia of B-cell type not having achieved remission (principal)
CPT/HCPCS: 36415; 80053; 83615; 85025; 99212; 99213; 99214; G0463

== ENCOUNTER 2025-04-22 11:44 | Outpatient (CLI) | payer MEDICARE, BC, SELFPAY ==
--- NOTE | 2025-04-22 13:56 | P.ANES_ITS ---
Anesthesia Charges Start Date/Time Anesthesia Start Date: 04/22/25 Anesthesia Start Time: 12:49 Stop Date/Time Anesthesia Stop Date: 04/22/25 Anesthesia Stop Time: 13:51 Summary Extremes of Age - Over 70 or under 1: FAST FOOD SHIFT LEAD
--- NOTE | 2025-04-22 13:57 | P.ANES_ITS ---
Anesthesia Charges Start Date/Time Anesthesia Start Date: 04/22/25 Anesthesia Start Time: 12:49 Stop Date/Time Anesthesia Stop Date: 04/22/25 Anesthesia Stop Time: 13:51 Summary Extremes of Age - Over 70 or under 1: MDA Coding CPT Codes CPT Codes: ANES LWR INTST NDSC NOS - 18707 ([id number]) QK - ASSISTANT SERVICE MANAGER 2-4 CNCRNT ANES PROC, QX - PRINTED CIRCUIT LAYOUT TAPER SVC W/ MD MED DIRECTION, P3 - PATIENT W/SEVERE SYS DISEASE Additional Codes: Summary - Extremes of Age - Over 70 or under 1: MDA ([id number])
== END 2025-04-22 11:45 | disposition home or self-care (01) ==
LOC: OP CLINIC 11:44
PROVIDERS: PCP Emergency Medicine; Visit Provider Surgery
DX: R93.3 Abnormal findings on diagnostic imaging of other parts of digestive tract (principal); D12.3 Benign neoplasm of transverse colon; D12.0 Benign neoplasm of cecum; D12.2 Benign neoplasm of ascending colon; D12.5 Benign neoplasm of sigmoid colon; D12.7 Benign neoplasm of rectosigmoid junction; K57.30 Diverticulosis of large intestine without perforation or abscess without bleeding
CPT/HCPCS: 00811; 45380; 45381; 45385; 88305; 99100; J2704

== ENCOUNTER 2025-06-09 13:46 | Outpatient (CLI) | payer MEDICARE, BC, SELFPAY | END 2025-06-09 13:47 | disposition home or self-care (01) | PROVIDERS: PCP Emergency Medicine; Visit Provider Nurse Practitioner Family | DX: I10 Essential (primary) hypertension (principal); E03.9 Hypothyroidism, unspecified; E87.1 Hypo-osmolality and hyponatremia | CPT/HCPCS: 80053; 84439; 84443 ==

== ENCOUNTER 2025-09-24 12:48 | Outpatient (CLI) | payer MEDICARE, BC, SELFPAY ==
[2025-09-24 13:24] LABS: Creatinine* 0.7 mg/dL (0.5-1.5); Estimated Glomerular Filt Rate 90 ml/min
--- NOTE | 2025-09-24 13:30 | CRLHL7_ITS ---
For Patients: As a result of the Century Cures Act, medical imaging exams and procedure reports are released immediately into your electronic medical record. You may view this report before your referring provider. If you have questions, please contact your health care provider. Indication: Abdominal pain Technique: CT Abdomen/Pelvis W/ 65CC [id number] intravenous contrast Please note that all CT scans at this facility use dose modulation, iterative reconstruction, and/or weight-based dosing when appropriate to reduce radiation dose to as low as reasonably achievable. Comparison: 06/07/2023, 04/01/2025 Findings: Linear subsegmental scarring is present in both lung bases. No pleural effusion. Incidental simple cysts within the liver measures 8.4 millimeters, unchanged. Stable sub cm hemangioma within the right hepatic lobe. Spleen is normal. Unchanged left adrenal adenoma. Normal right adrenal gland. No hydronephrosis. Stable exophytic cyst left kidney. Pancreas normal. Atherosclerotic changes. Gallbladder is normally distended. Small layering stones in the gallbladder lumen. Bladder unremarkable. Stable incidental calcification within the pelvic fat. No bowel obstruction. Mild diverticulosis. No free air or free fluid. Normal appendix. No pelvic mass. No adenopathy. Small fat filled umbilical hernia. No appreciable mass within the sigmoid colon. Degenerative disc disease L4-5 and L5-S1. No vertebral body compression fracture. Degenerative joint disease of both hips. Impression: Sigmoid diverticulosis. No appreciable sigmoid colon mass. No bowel obstruction or inflammatory change. Chronic cholelithiasis. Stable sub cm benign hypodensities within the liver. Stable benign cyst left kidney. Please note that all CT scans at this facility use dose modulation, iterative reconstruction, and/or weight-based dosing when appropriate to reduce radiation dose to as low as reasonably achievable. Dictated by Berlin Sheppard MD @ 09/24/2025 3:11:26 PM (Electronically Signed)
== END 2025-09-24 12:49 | disposition home or self-care (01) ==
LOC: CT 12:48
PROVIDERS: PCP Nurse Practitioner Family; Visit Provider Nurse Practitioner Family
DX: R91.8 Other nonspecific abnormal finding of lung field (principal); R10.9 Unspecified abdominal pain; K57.30 Diverticulosis of large intestine without perforation or abscess without bleeding; K80.20 Calculus of gallbladder without cholecystitis without obstruction; N28.1 Cyst of kidney, acquired
CPT/HCPCS: 36415; 74177; 82565; Q9967

== ENCOUNTER 2025-09-24 12:54 | Outpatient (CLI) | payer MEDICARE, BC, SELFPAY ==
--- NOTE | 2025-09-24 13:00 | CRLHL7_ITS ---
For Patients: As a result of the Century Cures Act, medical imaging exams and procedure reports are released immediately into your electronic medical record. You may view this report before your referring provider. If you have questions, please contact your health care provider. Indication: Pulmonary nodule follow-up Technique: Noncontrast CT chest Please note that all CT scans at this facility use dose modulation, iterative reconstruction, and/or weight-based dosing when appropriate to reduce radiation dose to as low as reasonably achievable. Comparison: CT 01/27/2025, CT-PET 04/01/2025 Findings: Left adrenal adenoma again noted. Atherosclerotic changes. No pleural or pericardial effusion. No hiatal hernia. No adenopathy. No fracture. Stable 1 cm ground-glass nodule within the right upper lobe. Also stable 9 millimeter ground-glass nodule superior segment left lower lobe. Paraseptal emphysema. Scarring in the right middle lobe and lingula. Osteopenia. Degenerative disc disease. No vertebral body compression fracture. Impression: Stable bilateral pulmonary nodules. Please note that all CT scans at this facility use dose modulation, iterative reconstruction, and/or weight-based dosing when appropriate to reduce radiation dose to as low as reasonably achievable. Dictated by Berlin Sheppard MD @ 09/24/2025 3:26:43 PM (Electronically Signed)
== END 2025-09-24 12:55 | disposition home or self-care (01) ==
LOC: CT 12:55
PROVIDERS: PCP Nurse Practitioner Family; Visit Provider Physician Assistant Medical
DX: R91.1 Solitary pulmonary nodule (principal); R10.9 Unspecified abdominal pain; K57.30 Diverticulosis of large intestine without perforation or abscess without bleeding; K80.20 Calculus of gallbladder without cholecystitis without obstruction; N28.1 Cyst of kidney, acquired; K52.9 Noninfective gastroenteritis and colitis, unspecified
CPT/HCPCS: 71250